=== PATIENT | male | born 1955 | race Caucasian/White ===

== ENCOUNTER → 2020-04-09 09:16 | Outpatient (BNVA) | payer MEDICARE, SELFPAY | PROVIDERS: PCP Family Medicine; Referring Provider Family Medicine; Visit Provider Internal Medicine | DX: R07.2 Precordial pain (principal); E11.9 Type 2 diabetes mellitus without complications; I10 Essential (primary) hypertension; E78.5 Hyperlipidemia, unspecified; G47.33 Obstructive sleep apnea (adult) (pediatric); E66.01 Morbid (severe) obesity due to excess calories; Z68.37 Body mass index [BMI] 37.0-37.9, adult; Z91.19 Patient's noncompliance with other medical treatment and regimen | CPT/HCPCS: 36415; 80048; 85025; 99205 ==

== ENCOUNTER 2020-04-09 19:18 | Outpatient (REF) | payer MEDICARE, SELFPAY ==
[2020-04-09 11:06] LABS: MANUAL DIFF FLAG NO
[2020-04-09 11:14] LABS: Basophils Percent Auto 0.4 % (0-2); Eosinophils Absolute Auto 0.3 X10*3/uL (0.0-0.4); Hematocrit 44.6 % (42-52); Hemoglobin 14.2 g/dl (14.0-18.0); Imm Gran Abs Auto 0.03 X10*3/uL (0.00-0.03); Imm Gran Pct Auto 0.4 % (0.0-0.4); Lymphocytes Absolute Auto 1.3 X10*3/uL (1.2-4.9); Lymphocytes Percent Auto 18.7 % (20-40); Mean Corpuscular HGB Conc 31.8 g/dl (31.0-36.0); Mean Corpuscular Hemoglobin 28.7 pg (27.0-33.0); Mean Corpuscular Volume 90.1 fL (80-98); Mean Platelet Volume 9.5 fL (9.4-12.4); Monocytes Absolute Auto 0.6 X10*3/uL (0.1-1.2); Monocytes Percent Auto 8.6 % (2-11); Neutrophils Absolute Auto 4.6 X10*3/uL (2.0-8.3); Neutrophils Percent Auto 66.9 % (45-73); Platelet Count 308 X10*3/uL (160-400); Red Blood Count 4.95 X10*6/uL (4.60-5.80); Red Cell Distribution Width 13.3 % (11.0-16.0); White Blood Count 6.9 X10*3/uL (4.8-10.8)
[2020-04-09 11:44] LABS: Anion Gap 15 (12-20); Blood Urea Nitrogen 31 mg/dL (9-16); Calcium 9.1 mg/dL (8.4-10.2); Carbon Dioxide 26 mmol/L (22-29); Chloride 101 mmol/L (96-108); Creatinine Clr Calc Pharmacy 58.3; Estimated Glomerular Filt Rate 45; Glucose Random 340 mg/dL (60-115); Potassium 5.1 mmol/l (3.3-5.1); Sodium 137 mmol/L (135-145)
== END 2020-04-09 19:19 | disposition home or self-care (01) ==
LOC: HO.LNP 19:18
PROVIDERS: Visit Provider Internal Medicine
DX: R07.9 Chest pain, unspecified (principal)
CPT/HCPCS: 36415; 80048; 85025

== ENCOUNTER 2020-04-13 17:00 | Outpatient (REF) | payer MEDICARE, SELFPAY ==
--- NOTE | 2020-04-13 17:30 | CT_ITS ---
EXAMINATION: CT ABDOMEN AND PELVIS WITHOUT CONTRAST CLINICAL INFORMATION: EPIGASTRIC PAIN S/P COLONOSCOPY 01/26; R/O PERFORATION . COMPARISON: No pertinent prior studies are available for comparison. TECHNIQUE: Multidetector volumetric imaging was performed from the superior aspect of the liver through the pubic symphysis without contrast per request. Sagittal and coronal reformatted images were obtained on the technologist workstation. This CT examination was performed using dose optimization techniques as appropriate, variously including the following: *Automated exposure control *Adjustment of mA and/or kV according to patient size (this includes techniques or standardized protocols for targeted exams where dose is matched to indication/reason for exam; i.e. extremities or head) *Use of iterative reconstruction technique DLP: 1389 mGy-cm. FINDINGS: LUNG BASES: The visualized lung bases are unremarkable. LIVER, GALLBLADDER, BILIARY TREE: The non-contrast liver is normal in size, shape, and attenuation. No focal hepatic lesion or biliary ductal dilatation is present. The gallbladder is unremarkable with no evidence of radiopaque gallstones, gallbladder wall thickening, or obvious pericholecystic inflammatory changes. PANCREAS: Unremarkable. SPLEEN: Unremarkable. ADRENAL GLANDS: Unremarkable. KIDNEYS AND URETERS: 3 cm cyst in the medial upper pole of the right kidney. Otherwise the kidneys are normal in size, shape, and attenuation. No hydronephrosis, hydroureter, or calculi seen. No perinephric stranding. BLADDER: Decompressed and unremarkable although partially obscured by beam hardening artifact from the bilateral hip prostheses. GASTROINTESTINAL TRACT: There is scattered colonic diverticulosis but no obvious diverticulitis. The oral contrast that was given extends to the splenic flexure. I do not appreciate any colonic wall thickening or pericolonic inflammatory changes. Normal-appearing retrocecal appendix in the right lower quadrant. Visualized small bowel is unremarkable. No significant free air or free fluid. ABDOMINAL WALL: No significant hernia is appreciated. Suggestion of prior hernia mesh at the local region LYMPHOVASCULAR STRUCTURES: Extensive vascular calcification within the aorta iliac system. PELVIC VISCERA: Unremarkable. OSSEUS STRUCTURES: Bilateral hip prostheses. Degenerative changes in the spine IMPRESSION: Scattered colonic diverticulosis but no evidence for diverticulitis. No colonic wall thickening or pericolonic inflammatory changes. No abnormal free air or free fluid..
== END 2020-04-13 17:01 | disposition home or self-care (01) ==
LOC: HO.CT 17:00
PROVIDERS: PCP Family Medicine; Visit Provider Family Medicine
DX: R10.13 Epigastric pain (principal)
CPT/HCPCS: 74176

== ENCOUNTER 2020-04-15 08:40 | Outpatient (REF) | payer MEDICARE, SELFPAY ==
[2020-04-15 09:50] LABS: MANUAL DIFF FLAG NO
[2020-04-15 10:02] LABS: Basophils Percent Auto 0.5 % (0-2); Eosinophils Absolute Auto 0.3 X10*3/uL (0.0-0.4); Eosinophils Percent Auto 3.7 % (0-4); Hematocrit 45.4 % (42-52); Hemoglobin 14.4 g/dl (14.0-18.0); Imm Gran Abs Auto 0.05 X10*3/uL (0.00-0.03); Imm Gran Pct Auto 0.7 % (0.0-0.4); Lymphocytes Absolute Auto 1.6 X10*3/uL (1.2-4.9); Mean Corpuscular HGB Conc 31.7 g/dl (31.0-36.0); Mean Corpuscular Hemoglobin 28.2 pg (27.0-33.0); Mean Platelet Volume 9.8 fL (9.4-12.4); Monocytes Absolute Auto 0.7 X10*3/uL (0.1-1.2); Monocytes Percent Auto 9.1 % (2-11); Neutrophils Absolute Auto 4.9 X10*3/uL (2.0-8.3); Platelet Count 307 X10*3/uL (160-400); Red Cell Distribution Width 13.2 % (11.0-16.0); White Blood Count 7.5 X10*3/uL (4.8-10.8)
[2020-04-15 10:30] LABS: C Reactive Protein 0.39 mg/dL (< or = 0.50)
[2020-04-15 10:31] LABS: Anion Gap 11 (12-20); Blood Urea Nitrogen 25 mg/dL (9-16); Carbon Dioxide 27 mmol/L (22-29); Chloride 105 mmol/L (96-108); Estimated Glomerular Filt Rate 58; Glucose Random 160 mg/dL (60-115); Potassium 4.9 mmol/l (3.3-5.1); Sodium 138 mmol/L (135-145)
== END 2020-04-15 08:41 | disposition home or self-care (01) ==
LOC: HO.LAB 08:40
PROVIDERS: Absent Provider Family Medicine; PCP Family Medicine; Visit Provider Nurse Practitioner Family
DX: E11.8 Type 2 diabetes mellitus with unspecified complications (principal); I10 Essential (primary) hypertension
CPT/HCPCS: 36415; 80048; 85025; 86140

== ENCOUNTER → 2020-04-16 12:56 | Outpatient (REF) | payer MEDICARE, SELFPAY ==
--- NOTE | 2020-04-16 13:15 | CA_ITS ---
Transthoracic Echocardiogram Patient (Last, First, Middle): River Bass A Gender: Male Date of : 1955 Age: 64 Procedure Date: 04/16/2020 Procedure Type: Transthoracic Echocardiogram Location: OP Height: 175.26 cm Weight: 113.4 kg BSA: 2.27 m2 Heart Rate: bpm BP: 132 / 78 mmHg Architectural Drafting Instructor: COLLIN Referring MD: Oliver Waite MD Symptoms: R07.2 Precordial Pain Study Quality: Fair ECG Rhythm: Sinus Conclusions: - The left ventricular systolic function is normal. The visually estimated ejection fraction is between 65-70%. - No obvious valvular pathology seen on this study. Findings Procedure Information Contrast agent, definity, is being given per protocol without apparent complications. Left Ventricle Normal left ventricular cavity size. There is mildly increased left ventricular wall thickness. The left ventricular systolic function is normal. The visually estimated ejection fraction is between 65-70%. There is no evidence of regional wall motion abnormalities. Diastolic function is normal for age. E/E prime ratio is <8, consistent with normal filling pressures. Right Ventricle Normal right ventricular cavity size and systolic function. Atria The left atrium is normal in size. The right atrium is normal in size. Aortic Valve There is a normal trileaflet aortic valve. There is mild calcification of the aortic valve. There is no aortic valve stenosis. There is no aortic valve regurgitation. Mitral Valve The mitral valve appears normal. There is trace mitral valve regurgitation. There is no mitral valve stenosis. Pulmonic Valve The pulmonic valve was not well visualized. Tricuspid Valve Normal tricuspid valve structure. There is trace tricuspid valve regurgitation. The pulmonary artery systolic pressure is normal. Great Vessels The aortic annulus, sinuses of valsalva, and asc aorta are normal in size. Venous The inferior vena cava is normal in size and collapses greater than 50% with inspiration. Pericardium/Pleural There is no evidence of pericardial effusion. Prior Study Comparison No significant change compared to prior study dated: 06/12/2017. Recommendations, Care & Conclusions No obvious valvular pathology seen on this study. Measurements 2D Linear Measurements IVSd: 1.28 0.6-0.9/0.6-1.0 cm LVIDd: 4.79 3.9-5.3/4.2-5.9 cm LVIDd Index: 2.11 2.4-3.2/2.2-3.1 cm/m2 LVIDs: 2.77 2.0-3.6 cm LVPWd: 1.07 0.7-1.1 cm Ao Root: 3.30 2.1-3.5 cm LA Diam: 3.20 2.7-3.8/3.0-4.0 cm LAIDs Index: 1.41 1.5-2.3 cm/m2 LV Mass: 264.26 67-162/88-224 g LV Mass Index: 116.41 43-95/49-115 g/m2 LVOT Diam: 2.40 3.0+(-)1.3 cm 2D Systolic Function EF 4C: 67.00 >55% EF 2C: 68.70 >55% EF BiP: 68.30 >55% Mitral Valve MV Pk E: 0.63 MV PK A: 0.52 MV Decel Time: 290.00 E/A: 1.20 E'Lateral: 9.48 E'Medial: 6.29 E/E' Med: 10.00 E/E' Lat: 6.70 PHT: 85.00 MVA PHT: 2.59 Decel Hartley: 2.17 Aortic Valve AoV Pk Rinku: 1.57 AoV Pk Grad: 10.00 LVOT LVOT Pk Rinku: 1.25 LVOT Mn Rinku: 0.75 LVOT VTI: 0.25 LVOT Pk Grad: 6.00 LVOT Mn Grad: 3.00 LVOT Diam: 2.40 LVOT Area: 4.52 Diastolic Function MV Pk E: 0.63 MV Pk A: 0.52 E/A: 1.20 E'Medial: 6.29 E/E' Med: 10.00 E' Laterial: 9.48 E/E' Lat: 6.70 Tricuspid Valve TR Pk Rinku: 2.48 TR Pk Grad: 25.00 RA Press: 3.00 RVSP: 28.00 Great Vessels Aorta Ao Root-2D: 3.30 2.0-3.7 cm Ao Asc: 3.50 2.1-3.4 cm Updated in Other Vendor System with Status of Final Oliver Waite MD electronically signed on 04/19/2020 9:31:05 AM with status of Final
== END ==
LOC: HO.CARD 12:56
PROVIDERS: PCP Family Medicine; Visit Provider Internal Medicine
DX: R07.2 Precordial pain (principal)
CPT/HCPCS: 93306; Q9957

== ENCOUNTER → 2020-05-05 10:43 | Outpatient (BNVA) | payer MEDICARE, SELFPAY | PROVIDERS: PCP Family Medicine; Visit Provider Nurse Practitioner Family | DX: I25.10 Atherosclerotic heart disease of native coronary artery without angina pectoris (principal); R07.2 Precordial pain; R78.5 Finding of other psychotropic drug in blood; G47.33 Obstructive sleep apnea (adult) (pediatric); E66.01 Morbid (severe) obesity due to excess calories; Z71.3 Dietary counseling and surveillance; E78.5 Hyperlipidemia, unspecified; E11.8 Type 2 diabetes mellitus with unspecified complications; Z98.890 Other specified postprocedural states; Z99.89 Dependence on other enabling machines and devices; Z68.37 Body mass index [BMI] 37.0-37.9, adult; Z79.82 Long term (current) use of aspirin; Z79.899 Other long term (current) drug therapy | CPT/HCPCS: 99212 ==

== ENCOUNTER → 2020-07-30 12:24 | Outpatient (BNVA) | payer MEDICARE, SELFPAY | PROVIDERS: PCP Family Medicine; Visit Provider Internal Medicine | DX: I25.10 Atherosclerotic heart disease of native coronary artery without angina pectoris (principal); E11.8 Type 2 diabetes mellitus with unspecified complications; I10 Essential (primary) hypertension; G47.33 Obstructive sleep apnea (adult) (pediatric); D75.82 Heparin induced thrombocytopenia (HIT); Z95.1 Presence of aortocoronary bypass graft | CPT/HCPCS: 99212 ==

== ENCOUNTER 2020-08-07 15:06 | Outpatient (REF) | payer MEDICARE, SELFPAY ==
[2020-08-07 15:09] LABS: MANUAL DIFF FLAG NO
[2020-08-07 15:15] LABS: Basophils Percent Auto 0.4 % (0-2); Eosinophils Absolute Auto 0.5 X10*3/uL (0.0-0.4); Hematocrit 38.1 % (42-52); Hemoglobin 11.2 g/dl (14.0-18.0); Imm Gran Abs Auto 0.01 X10*3/uL (0.00-0.03); Imm Gran Pct Auto 0.1 % (0.0-0.4); Lymphocytes Absolute Auto 1.3 X10*3/uL (1.2-4.9); Lymphocytes Percent Auto 19.2 % (20-40); Mean Corpuscular HGB Conc 29.4 g/dl (31.0-36.0); Mean Corpuscular Hemoglobin 26.2 pg (27.0-33.0); Mean Corpuscular Volume 89.2 fL (80-98); Mean Platelet Volume 10.5 fL (9.4-12.4); Monocytes Absolute Auto 0.6 X10*3/uL (0.1-1.2); Monocytes Percent Auto 9.2 % (2-11); Neutrophils Absolute Auto 4.4 X10*3/uL (2.0-8.3); Neutrophils Percent Auto 64.1 % (45-73); Platelet Count 340 X10*3/uL (160-400); Red Blood Count 4.27 X10*6/uL (4.60-5.80); Red Cell Distribution Width 15.3 % (11.0-16.0); White Blood Count 6.9 X10*3/uL (4.8-10.8)
[2020-08-07 15:51] LABS: Anion Gap 13 (12-20); Blood Urea Nitrogen 19 mg/dL (9-16); Carbon Dioxide 30 mmol/L (22-29); Chloride 101 mmol/L (96-108); Estimated Glomerular Filt Rate 50; Sodium 139 mmol/L (135-145)
== END 2020-08-07 15:07 | disposition home or self-care (01) ==
LOC: HO.LNP 15:06
PROVIDERS: Visit Provider Family Medicine
DX: D64.9 Anemia, unspecified (principal); E11.9 Type 2 diabetes mellitus without complications; I10 Essential (primary) hypertension; Z79.899 Other long term (current) drug therapy
CPT/HCPCS: 80051; 82565; 84520; 85025

== ENCOUNTER 2020-09-02 14:33 | Outpatient (REF) | payer MEDICARE, SELFPAY ==
[2020-09-02 15:44] LABS: MANUAL DIFF FLAG NO
[2020-09-02 15:51] LABS: Basophils Percent Auto 0.4 % (0-2); Eosinophils Absolute Auto 0.4 X10*3/uL (0.0-0.4); Eosinophils Percent Auto 4.8 % (0-4); Hematocrit 40.5 % (42-52); Imm Gran Abs Auto 0.02 X10*3/uL (0.00-0.03); Imm Gran Pct Auto 0.3 % (0.0-0.4); Lymphocytes Absolute Auto 1.5 X10*3/uL (1.2-4.9); Lymphocytes Percent Auto 19.1 % (20-40); Mean Corpuscular HGB Conc 29.6 g/dl (31.0-36.0); Mean Corpuscular Hemoglobin 25.8 pg (27.0-33.0); Mean Corpuscular Volume 86.9 fL (80-98); Mean Platelet Volume 9.9 fL (9.4-12.4); Monocytes Absolute Auto 0.7 X10*3/uL (0.1-1.2); Monocytes Percent Auto 8.8 % (2-11); Neutrophils Absolute Auto 5.3 X10*3/uL (2.0-8.3); Neutrophils Percent Auto 66.6 % (45-73); Platelet Count 339 X10*3/uL (160-400); Red Blood Count 4.66 X10*6/uL (4.60-5.80); Red Cell Distribution Width 14.8 % (11.0-16.0)
[2020-09-02 16:35] LABS: Free T4 (Free Thyroxine) 0.89 ng/dL (0.71-1.85); Thyroid Stimulating Hormone 2.75 uIU/mL (0.32-4.0)
== END 2020-09-02 14:34 | disposition home or self-care (01) ==
LOC: HO.LAB 14:33
PROVIDERS: Visit Provider Family Medicine
DX: I95.9 Hypotension, unspecified (principal)
CPT/HCPCS: 36415; 84439; 84443; 85025

== ENCOUNTER 2020-09-04 10:49 | Outpatient (REF) | payer MEDICARE, SELFPAY ==
[2020-09-04 11:58] LABS: INTERNATIONAL NORM RATIO 1.8 (0.9-1.1); Prothrombin Time 21.1 SEC (10.8-13.0)
== END 2020-09-04 10:50 | disposition home or self-care (01) ==
LOC: HO.LAB 10:49
PROVIDERS: PCP Family Medicine; Visit Provider Nurse Practitioner Family
DX: I26.99 Other pulmonary embolism without acute cor pulmonale (principal)
CPT/HCPCS: 36415; 85610

== ENCOUNTER 2020-09-28 10:16 | Outpatient (REF) | payer MEDICARE, SELFPAY ==
[2020-09-28 11:22] LABS: INTERNATIONAL NORM RATIO 1.6 (0.9-1.1); Prothrombin Time 18.8 SEC (10.8-13.0)
== END 2020-09-28 10:17 | disposition home or self-care (01) ==
LOC: HO.LABR 10:16
PROVIDERS: PCP Family Medicine; Visit Provider Family Medicine
DX: I26.99 Other pulmonary embolism without acute cor pulmonale (principal)
CPT/HCPCS: 36415; 85610

== ENCOUNTER → 2020-10-05 13:44 | Outpatient (REF) | payer MEDICARE, SELFPAY ==
--- NOTE | 2020-10-05 13:48 | CA_ITS ---
Transthoracic Echocardiogram Patient (Last, First, Middle): River Bass A Gender: Male Date of : 1955 Age: 65 Procedure Date: 10/05/2020 Procedure Type: Transthoracic Echocardiogram Location: OP Height: 175.26 cm Weight: 108.86 kg BSA: 2.23 m2 Heart Rate: bpm BP: 130 / 70 mmHg Staff Air Tactical Officer: DAYRON Referring MD: Oliver Waite MD Symptoms: I25.10 - Atherosclerotic heart disease of [place] coronary artery without angina pectoris Study Quality: Fair/contrast ECG Rhythm: Sinus Conclusions: - The left ventricular systolic function is normal. The visually estimated ejection fraction is between 60-65%. - There is mild calcification of the aortic valve. - There is mild mitral annular calcification. Findings Procedure Information Contrast agent, definity, is being given per protocol without apparent complications. Left Ventricle Normal left ventricular cavity size. There is mildly increased left ventricular wall thickness. The left ventricular systolic function is normal. The visually estimated ejection fraction is between 60-65%. There is no evidence of regional wall motion abnormalities. There is paradoxical septal motion consistent with post-operative status. Diastolic function is normal for age. Right Ventricle Normal right ventricular cavity size and systolic function. Atria The left atrium is mildly dilated. The right atrium is normal in size. Aortic Valve There is mild calcification of the aortic valve. There is no aortic valve stenosis. There is no aortic valve regurgitation. Mitral Valve The mitral valve appears normal. There is mild mitral annular calcification. There is trace mitral valve regurgitation. There is no mitral valve stenosis. Pulmonic Valve The pulmonic valve was not well visualized. Tricuspid Valve Normal tricuspid valve structure. There is trace tricuspid valve regurgitation. The pulmonary artery systolic pressure is normal. Great Vessels There is mild dilatation of the ascending aorta measuring 4.00 cm. Venous The inferior vena cava is normal in size. Pericardium/Pleural There is no evidence of pericardial effusion. Prior Study Comparison No significant change compared to prior study dated: 04/16/2020. Measurements 2D Linear Measurements IVSd: 1.24 0.6-0.9/0.6-1.0 cm LVIDd: 4.65 3.9-5.3/4.2-5.9 cm LVIDd Index: 2.09 2.4-3.2/2.2-3.1 cm/m2 LVIDs: 3.00 2.0-3.6 cm LVPWd: 1.22 0.7-1.1 cm Ao Root: 3.80 2.1-3.5 cm LA Diam: 4.20 2.7-3.8/3.0-4.0 cm LAIDs Index: 1.88 1.5-2.3 cm/m2 LV Mass: 269.24 67-162/88-224 g LV Mass Index: 120.73 43-95/49-115 g/m2 LVOT Diam: 2.20 3.0+(-)1.3 cm 2D Systolic Function EF 4C: 62.70 >55% EF 2C: 61.70 >55% EF BiP: 63.90 >55% Mitral Valve MV Pk E: 0.59 MV PK A: 0.49 MV Decel Time: 392.00 E/A: 1.20 E'Lateral: 7.94 E'Medial: 5.87 E/E' Med: 10.00 E/E' Lat: 7.40 PHT: 115.00 MVA PHT: 1.91 Decel [place]: 1.50 Aortic Valve AoV Pk Rinku: 1.52 AoV Mn Rinku: 1.07 AoV VTI: 0.30 AoV Pk Grad: 9.00 Aov Mn Grad: 5.00 SAL Cont.VTI: 2.37 LVOT LVOT Pk Rinku: 0.97 LVOT Mn Rinku: 0.59 LVOT VTI: 0.19 LVOT Pk Grad: 4.00 LVOT Mn Grad: 2.00 LVOT Diam: 2.20 LVOT Area: 3.80 Diastolic Function MV Pk E: 0.59 MV Pk A: 0.49 E/A: 1.20 E'Medial: 5.87 E/E' Med: 10.00 E' Laterial: 7.94 E/E' Lat: 7.40 Tricuspid Valve TR Pk Rinku: 1.90 TR Pk Grad: 14.00 RA Press: 3.00 RVSP: 17.00 Great Vessels Aorta Ao Root-2D: 3.80 2.0-3.7 cm Ao Asc: 4.00 2.1-3.4 cm Ao Arch: 3.60 Updated in Other Vendor System with Status of Final Oliver Waite MD electronically signed on 10/05/2020 4:57:09 PM with status of Final
== END ==
LOC: HO.CARD 13:44
PROVIDERS: Visit Provider Internal Medicine
DX: I25.10 Atherosclerotic heart disease of native coronary artery without angina pectoris (principal); Z95.1 Presence of aortocoronary bypass graft
CPT/HCPCS: 93306; Q9957

== ENCOUNTER 2020-10-30 09:04 | Outpatient (REF) | payer MEDICARE, SELFPAY ==
[2020-10-30 10:45] LABS: INTERNATIONAL NORM RATIO 1.7 (0.9-1.1); Prothrombin Time 19.8 SEC (10.8-13.0)
== END 2020-10-30 09:05 | disposition home or self-care (01) ==
LOC: HO.LABR 09:04
PROVIDERS: PCP Family Medicine; Visit Provider Family Medicine
DX: I26.99 Other pulmonary embolism without acute cor pulmonale (principal)
CPT/HCPCS: 36415; 85610

== ENCOUNTER 2020-11-17 14:09 | Outpatient (REF) | payer MEDICARE, SELFPAY ==
[2020-11-17 15:17] LABS: INTERNATIONAL NORM RATIO 1.2 (0.9-1.1); Prothrombin Time 14.4 SEC (10.8-13.0)
== END 2020-11-17 14:10 | disposition home or self-care (01) ==
LOC: HO.LABR 14:09
PROVIDERS: PCP Family Medicine; Visit Provider Family Medicine
DX: I26.99 Other pulmonary embolism without acute cor pulmonale (principal)
CPT/HCPCS: 36415; 85610

== ENCOUNTER 2020-11-24 14:28 | Outpatient (REF) | payer MEDICARE, SELFPAY ==
[2020-11-24 15:28] LABS: INTERNATIONAL NORM RATIO 1.4 (0.9-1.1); Prothrombin Time 16.3 SEC (10.8-13.0)
== END 2020-11-24 14:29 | disposition home or self-care (01) ==
LOC: HO.LABR 14:28
PROVIDERS: PCP Family Medicine; Visit Provider Family Medicine
DX: I26.99 Other pulmonary embolism without acute cor pulmonale (principal)
CPT/HCPCS: 36415; 85610

== ENCOUNTER 2020-12-02 13:46 | Outpatient (REF) | payer MEDICARE, SELFPAY ==
[2020-12-02 14:51] LABS: INTERNATIONAL NORM RATIO 1.7 (0.9-1.1); Prothrombin Time 20.2 SEC (10.8-13.0)
== END 2020-12-02 13:47 | disposition home or self-care (01) ==
LOC: HO.LABR 13:46
PROVIDERS: Absent Provider Nurse Practitioner Family; PCP Family Medicine; Visit Provider Family Medicine
DX: I26.99 Other pulmonary embolism without acute cor pulmonale (principal)
CPT/HCPCS: 36415; 85610

== ENCOUNTER 2021-01-06 12:19 | Outpatient (REF) | payer MEDICARE, SELFPAY ==
[2021-01-06 14:02] LABS: Prothrombin Time 24.2 SEC (10.8-13.0)
== END 2021-01-06 12:20 | disposition home or self-care (01) ==
LOC: HO.LABR 12:19
PROVIDERS: Visit Provider Family Medicine
DX: I26.99 Other pulmonary embolism without acute cor pulmonale (principal); I25.10 Atherosclerotic heart disease of native coronary artery without angina pectoris
CPT/HCPCS: 36415; 85610

== ENCOUNTER 2021-01-18 11:04 | Outpatient (REF) | payer MEDICARE, SELFPAY ==
[2021-01-18 12:10] LABS: INTERNATIONAL NORM RATIO 2.1 (0.9-1.1); Prothrombin Time 24.4 SEC (9.9-13.0)
== END 2021-01-18 11:05 | disposition home or self-care (01) ==
LOC: HO.LABR 11:04
PROVIDERS: PCP Family Medicine; Visit Provider Family Medicine
DX: I26.99 Other pulmonary embolism without acute cor pulmonale (principal)
CPT/HCPCS: 36415; 85610

== ENCOUNTER → 2021-01-20 13:04 | Outpatient (BNVA) | payer MEDICARE, SELFPAY | PROVIDERS: PCP Family Medicine; Visit Provider Internal Medicine | DX: I25.10 Atherosclerotic heart disease of native coronary artery without angina pectoris (principal); E11.8 Type 2 diabetes mellitus with unspecified complications; I10 Essential (primary) hypertension; G47.33 Obstructive sleep apnea (adult) (pediatric); D75.82 Heparin induced thrombocytopenia (HIT); Z95.1 Presence of aortocoronary bypass graft | CPT/HCPCS: 99212 ==

== ENCOUNTER 2021-02-01 09:53 | Outpatient (REF) | payer MEDICARE, SELFPAY ==
[2021-02-01 10:46] LABS: INTERNATIONAL NORM RATIO 1.8 (0.9-1.1); Prothrombin Time 20.9 SEC (9.9-13.0)
== END 2021-02-01 09:54 | disposition home or self-care (01) ==
LOC: HO.LABR 09:53
PROVIDERS: PCP Family Medicine; Visit Provider Family Medicine
DX: I26.99 Other pulmonary embolism without acute cor pulmonale (principal)
CPT/HCPCS: 36415; 85610

== ENCOUNTER 2021-02-16 13:06 | Outpatient (REF) | payer MEDICARE, SELFPAY ==
[2021-02-16 13:49] LABS: INTERNATIONAL NORM RATIO 1.6 (0.9-1.1); Prothrombin Time 18.8 SEC (9.9-13.0)
== END 2021-02-16 13:07 | disposition home or self-care (01) ==
LOC: HO.LABR 13:06
PROVIDERS: PCP Family Medicine; Visit Provider Family Medicine
DX: I26.99 Other pulmonary embolism without acute cor pulmonale (principal)
CPT/HCPCS: 36415; 85610

== ENCOUNTER 2021-02-23 12:17 | Outpatient (REF) | payer MEDICARE, SELFPAY ==
[2021-02-23 14:42] LABS: INTERNATIONAL NORM RATIO 1.8 (0.9-1.1); Prothrombin Time 20.7 SEC (9.9-13.0)
== END 2021-02-23 12:18 | disposition home or self-care (01) ==
LOC: HO.10HDL 12:17
PROVIDERS: PCP Family Medicine; Visit Provider Family Medicine
DX: I26.99 Other pulmonary embolism without acute cor pulmonale (principal)
CPT/HCPCS: 36415; 85610

== ENCOUNTER 2021-03-08 13:53 | Outpatient (REF) | payer MEDICARE, SELFPAY ==
[2021-03-08 15:03] LABS: INTERNATIONAL NORM RATIO 2.3 (0.9-1.1); Prothrombin Time 26.2 SEC (9.9-13.0)
== END 2021-03-08 13:54 | disposition home or self-care (01) ==
LOC: HO.LABR 13:53
PROVIDERS: PCP Family Medicine; Visit Provider Family Medicine
DX: I26.99 Other pulmonary embolism without acute cor pulmonale (principal)
CPT/HCPCS: 36415; 85610

== ENCOUNTER 2021-03-23 08:54 | Outpatient (REF) | payer MEDICARE, SELFPAY ==
[2021-03-23 10:01] LABS: INTERNATIONAL NORM RATIO 1.6 (0.9-1.1); Prothrombin Time 17.8 SEC (9.9-13.0)
== END 2021-03-23 08:55 | disposition home or self-care (01) ==
LOC: HO.LABR 08:54
PROVIDERS: PCP Family Medicine; Visit Provider Family Medicine
DX: I26.99 Other pulmonary embolism without acute cor pulmonale (principal)
CPT/HCPCS: 36415; 85610

== ENCOUNTER 2021-04-06 09:34 | Outpatient (REF) | payer MEDICARE, SELFPAY ==
[2021-04-06 10:24] LABS: INTERNATIONAL NORM RATIO 2.2 (0.9-1.1)
== END 2021-04-06 09:35 | disposition home or self-care (01) ==
LOC: HO.LABR 09:34
PROVIDERS: Visit Provider Family Medicine
DX: I26.99 Other pulmonary embolism without acute cor pulmonale (principal)
CPT/HCPCS: 36415; 85610

== ENCOUNTER 2021-04-20 09:01 | Outpatient (REF) | payer MEDICARE, SELFPAY ==
[2021-04-20 10:09] LABS: Prothrombin Time 22.7 SEC (9.9-13.0)
[2021-04-20 10:19] LABS: Estimated Average Glucose 252 mg/dL; Hemoglobin A1c % 10.4 %
[2021-04-20 10:31] LABS: Anion Gap 12 (12-20); Blood Urea Nitrogen 22 mg/dL (9-16); Carbon Dioxide 29 mmol/L (22-29); Chloride 100 mmol/L (96-108); Estimated Glomerular Filt Rate 40; Glucose Fasting 263 mg/dL (60-99); Potassium 5.3 mmol/L (3.3-5.1); Sodium 136 mmol/L (135-145)
== END 2021-04-20 09:02 | disposition home or self-care (01) ==
LOC: HO.LAB 09:01
PROVIDERS: PCP Family Medicine; Visit Provider Family Medicine
DX: E11.9 Type 2 diabetes mellitus without complications (principal); I10 Essential (primary) hypertension; I26.99 Other pulmonary embolism without acute cor pulmonale
CPT/HCPCS: 36415; 80051; 82565; 82947; 83036; 84520; 85610

== ENCOUNTER 2021-04-23 12:26 | Outpatient (REF) | payer MEDICARE, SELFPAY ==
--- NOTE | ~2021-04-23 | XR_ITS ---
EXAMINATION: XR LUMBOSACRAL SPINE CLINICAL INFORMATION: Low back pain. COMPARISON: None TECHNIQUE: Three views of the lumbosacral spine. FINDINGS: There is mild straightening of lumbar lordosis. The vertebral heights and alignment is normal. There is loss of L5-S1 disc heights. There is moderate spondylosis dorsal spine. No lytic or sclerotic process seen. SI joints are symmetrical. Paravertebral soft tissues are normal. Incidental finding of bilateral hip prosthesis. XR/XR lumbar spine 2-3V IMPRESSION: Mild degenerative disc changes lumbar spine. Moderate bridging osteophytes and spondylosis throughout lumbar spine. No acute fracture or lytic process.
== END 2021-04-23 12:27 | disposition home or self-care (01) ==
LOC: HO.XRAY 12:26
PROVIDERS: Visit Provider Family Medicine
DX: M54.50 Low back pain, unspecified (principal)
CPT/HCPCS: 72100

== ENCOUNTER 2021-05-11 14:27 | Outpatient (REF) | payer MEDICARE, SELFPAY ==
[2021-05-11 15:02] LABS: INTERNATIONAL NORM RATIO 2.5 (0.9-1.1); Prothrombin Time 29.5 SEC (9.9-13.0)
== END 2021-05-11 14:28 | disposition home or self-care (01) ==
LOC: HO.LABR 14:27
PROVIDERS: PCP Family Medicine; Visit Provider Family Medicine
DX: I26.99 Other pulmonary embolism without acute cor pulmonale (principal)
CPT/HCPCS: 36415; 85610

== ENCOUNTER 2021-06-07 15:01 | Outpatient (REF) | payer MEDICARE, SELFPAY ==
[2021-06-07 15:49] LABS: INTERNATIONAL NORM RATIO 1.9 (0.9-1.1); Prothrombin Time 21.9 SEC (9.9-13.0)
== END 2021-06-07 15:02 | disposition home or self-care (01) ==
LOC: HO.LABR 15:01
PROVIDERS: PCP Family Medicine; Visit Provider Family Medicine
DX: I26.99 Other pulmonary embolism without acute cor pulmonale (principal)
CPT/HCPCS: 36415; 85610

== ENCOUNTER 2021-11-24 09:38 | Outpatient (REF) | payer MEDICARE, SELFPAY ==
[2021-11-24 11:49] LABS: Estimated Average Glucose 252 mg/dL; Hemoglobin A1c % 10.4 %
[2021-11-24 11:56] LABS: Glucose Fasting 264 mg/dL (60-99)
[2021-11-24 12:01] LABS: Alanine Aminotransferase 20 U/L (0-40); Anion Gap 11 (12-20); Aspartate Amino Transferase 17 U/L (5-37); Carbon Dioxide 33 mmol/L (22-29); Chloride 100 mmol/L (96-108); Cholesterol 135 mg/dL; Estimated Glomerular Filt Rate 44; HDL Cholesterol 34 mg/dL; LDL Cholesterol Calculated 81 mg/dl; Potassium 5.5 mmol/L (3.3-5.1); Sodium 138 mmol/L (135-145); Triglycerides 101 mg/dL
== END 2021-11-24 09:39 | disposition home or self-care (01) ==
LOC: HO.HMGCLDS 09:38
PROVIDERS: PCP Family Medicine; Visit Provider Family Medicine
DX: I10 Essential (primary) hypertension (principal); E11.9 Type 2 diabetes mellitus without complications; E78.00 Pure hypercholesterolemia, unspecified
CPT/HCPCS: 36415; 80051; 80061; 82550; 82565; 82947; 83036; 84450; 84460

== ENCOUNTER 2022-08-31 12:44 | Outpatient (REF) | payer MEDICARE, SELFPAY ==
[2022-08-31 14:41] LABS: MANUAL DIFF FLAG NO
[2022-08-31 14:54] LABS: Basophils Percent Auto 0.4 % (0-2); Eosinophils Absolute Auto 0.3 X10*3/uL (0.0-0.4); Eosinophils Percent Auto 3.7 % (0-4); Hematocrit 49.4 % (42.0-52.0); Hemoglobin 15.6 g/dl (14.0-18.0); Imm Gran Abs Auto 0.03 X10*3/uL (0.00-0.03); Imm Gran Pct Auto 0.4 % (0.0-0.4); Lymphocytes Absolute Auto 1.3 X10*3/uL (1.2-4.9); Lymphocytes Percent Auto 19.1 % (20-40); Mean Corpuscular HGB Conc 31.6 g/dl (31.0-36.0); Mean Corpuscular Hemoglobin 28.7 pg (27.0-33.0); Mean Corpuscular Volume 90.8 fL (80.0-98.0); Mean Platelet Volume 10.4 fL (9.4-12.4); Monocytes Absolute Auto 0.6 X10*3/uL (0.1-1.2); Monocytes Percent Auto 8.9 % (2-11); Neutrophils Absolute Auto 4.6 x10*3/uL (2.0-8.3); Neutrophils Percent Auto 67.5 % (45-73); Platelet Count 211 X10*3/uL (160-400); Red Blood Count 5.44 X10*6/uL (4.60-5.80); Red Cell Distribution Width 12.7 % (11.0-16.0); White Blood Count 6.8 X10*3/uL (4.8-10.8)
[2022-08-31 15:31] LABS: Alanine Aminotransferase 23 U/L (0-40); Anion Gap 13 (12-20); Aspartate Amino Transferase 15 U/L (5-37); Blood Urea Nitrogen 18 mg/dL (9-16); Carbon Dioxide 30 mmol/L (22-29); Chloride 101 mmol/L (96-108); Estimated Glomerular Filt Rate 54; Glucose Fasting 298 mg/dL (60-99); Potassium 5.3 mmol/L (3.3-5.1); Sodium 139 mmol/L (135-145)
[2022-08-31 15:39] LABS: Estimated Average Glucose 335 mg/dL; Hemoglobin A1c % 13.3 %
[2022-08-31 15:46] LABS: Prostate Specific Antigen Scr 0.54 ng/mL (<0.05-4.0)
== END 2022-08-31 12:45 | disposition home or self-care (01) ==
LOC: HO.10HDL 12:44
PROVIDERS: Visit Provider Family Medicine
DX: Z12.5 Encounter for screening for malignant neoplasm of prostate (principal); R10.9 Unspecified abdominal pain; I10 Essential (primary) hypertension; E11.9 Type 2 diabetes mellitus without complications
CPT/HCPCS: 36415; 80051; 82378; 82550; 82565; 82947; 83036; 84153; 84450; 84460; 84520; 85025

== ENCOUNTER 2022-09-26 08:38 | Outpatient (REF) | payer MEDICARE, SELFPAY ==
--- NOTE | ~2022-09-26 | CT_ITS ---
EXAMINATION: CT ABDOMEN AND PELVIS WITHOUT CONTRAST CLINICAL INFORMATION: Epigastric pain, left lower quadrant pain. COMPARISON: None available. TECHNIQUE: Multidetector volumetric imaging was performed from the superior aspect of the liver through the pubic symphysis. Sagittal and coronal reformatted images were obtained on the technologist's workstation. This CT examination was performed using dose optimization techniques as appropriate, variously including the following: *Automated exposure control *Adjustment of mA and/or kV according to patient size (this includes techniques or standardized protocols for targeted exams where dose is matched to indication/reason for exam; i.e. extremities or head) *Use of iterative reconstruction technique DLP: 802 mGy-cm FINDINGS: LUNG BASES: The visualized lung bases are unremarkable. LIVER, GALLBLADDER, AND BILIARY TREE: The liver is normal in size, shape, and attenuation. No focal hepatic lesion or biliary ductal dilatation is present. The gallbladder is unremarkable with no evidence of radiopaque gallstones, gallbladder wall thickening, or obvious pericholecystic inflammatory changes. PANCREAS: Unremarkable. SPLEEN: Unremarkable. ADRENAL GLANDS: Unremarkable. KIDNEYS AND URETERS: The kidneys are normal in size, shape, and attenuation. No hydronephrosis, hydroureter, or calculi seen. No perinephric stranding. BLADDER: Unremarkable. GASTROINTESTINAL TRACT: There is scattered stool and diverticula seen in colon without any colonic distention, mural thickening or pericolic fat stranding. The diverticula are most numerous in sigmoid colon. There is minimal mural thickening involving the terminal ileum but no inflammatory changes seen in the surrounding soft tissues. The rest the small bowel is well-opacified with oral contrast and appears unremarkable. The stomach is opacified with oral contrast and is unremarkable. ABDOMINAL WALL: No significant hernia is appreciated. LYMPH NODES: Normal. VASCULAR: Unremarkable. PELVIC VISCERA: Unremarkable. OSSEOUS STRUCTURES: There are degenerative disc changes L2-L3, L5-S1 disc levels with large ventral bridging osteophytes lower dorsal and lumbar spine. No aggressive lytic or sclerotic process seen. There are bilateral hip prostheses. CT/CT abdomen pelvis wo IV con IMPRESSION: No acute intra-abdominal process seen. Diffuse colonic diverticulosis without diverticulitis. The diverticula are most prominent in the sigmoid region. Nonspecific mild mural thickening terminal ileum without distention. Fleischner guidelines were followed.
[2022-09-26] MEDS: Barium Sulfate Oral (Berry) 450 ML ORAL.SUSP 900 ML PO (10:59)
== END 2022-09-26 08:39 | disposition home or self-care (01) ==
LOC: HO.CT 08:38
PROVIDERS: PCP Family Medicine; Visit Provider Family Medicine
DX: R10.30 Lower abdominal pain, unspecified (principal); R10.13 Epigastric pain
CPT/HCPCS: 74176

== ENCOUNTER 2022-12-30 09:51 | Outpatient (REF) | payer OTHER, SELFPAY ==
[2022-12-30 12:10] LABS: Estimated Average Glucose 243 mg/dL; Hemoglobin A1c % 10.1 %
[2022-12-30 12:38] LABS: Creatinine Urine 136.13 mg/dL
[2022-12-30 12:51] LABS: Blood Urea Nitrogen 19 mg/dL (9-16); Chloride 101 mmol/L (96-108); Estimated Glomerular Filt Rate 50; Potassium 4.9 mmol/L (3.3-5.1); Sodium 136 mmol/L (135-145)
[2022-12-30 13:06] LABS: Anion Gap 15 (12-20); Carbon Dioxide 26 mmol/L (22-29)
== END 2022-12-30 09:52 | disposition home or self-care (01) ==
LOC: HO.HMGCLDS 09:51
PROVIDERS: PCP Family Medicine; Visit Provider Family Medicine
DX: I10 Essential (primary) hypertension (principal); E11.9 Type 2 diabetes mellitus without complications
CPT/HCPCS: 36415; 80051; 82043; 82565; 83036; 84520

== ENCOUNTER 2023-03-23 09:25 | Outpatient (AMB) | payer OTHER, SELFPAY ==
[2023-03-23 09:46] VITALS: BP 120/74; PULSE 56; BMI 36.6
--- NOTE | 2023-03-23 09:46 | MHC.OFFVIS ---
Intake Vital Signs 03/23/23 09:46 Height 5 ft 9 in Weight 247 lb 12.793 oz BMI 36.6 BP 120/74 Blood Pressure Location Lt brachial Position Sitting Pulse 56 Intake Visit Reasons: OVERDUE FOLLOW UP Intake Note: overdue f/u [place] Machine Operator Required: No Allergies heparin Adverse Reaction (Severe, Verified 03/23/23 09:50) HIT Medication List - Last Reconciled 03/23/23 by ERNESTINA Aquino aspirin 81 mg PO DAILY atorvastatin 20 mg PO DAILY gabapentin 300 mg PO BEDTIME insulin glargine 10 units subcut BID insulin lispro (Humalog KwikPen (U-100) Insulin) 5 units subcut TID insulin lispro 100 units subcut DIRECTED metformin 500 mg PO DAILY metoprolol succinate ER 25 mg PO DAILY pantoprazole 40 mg PO DAILY sertraline 50 mg PO QAM tamsulosin 0.4 mg PO DAILY HPI OVERDUE FOLLOW UP HPI Details River is a 67-year-old male with past medical history of hypertension, hyperlipidemia, sleep apnea, diabetes, obesity, CAD with 3 vessel coronary artery bypass grafting 04/2020, followed by DVT/PE, HIT who presents for follow-up. His last prior visit to cardiology was 01/20/2021. Today he reports that he has been doing very well over the last 2 years. He has no chest discomfort at rest or with activity. No heart palpitations, shortness of breath, presyncope, syncope, falls, PND, orthopnea or edema. He says he takes his meds as directed. 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 HLD (hyperlipidemia) CAD (coronary artery disease) History of stroke ONEYDA (obstructive sleep apnea) Morbid obesity Type 2 diabetes mellitus with unspecified complications Essential hypertension Surgical History Status post aorto-coronary artery bypass graft History of coronary artery bypass graft x 3 (~05/21/20) S/P cardiac cath (~04/2020) History of hip replacement Family History Father Cardiovascular disease Mother Cardiovascular disease Social History Alcohol intake: former Patient Tobacco Use Status: Never used Tobacco Review of Systems Const All systems reviewed & are unremarkable except as noted in HPI and below ENT Denies dizziness Card Denies chest pain, Denies chest pain at rest, Denies chest pain with activity, Denies rapid heart rate, Denies pedal edema, Denies edema, Denies leg edema, Denies lightheadedness, Denies palpitations, Denies dyspnea, Denies dyspnea on exertion and Denies orthopnea Resp Denies cough, Denies dyspnea and Denies dyspnea on exertion GI Denies hematochezia and Denies change in stool character Musc Denies abnormal gait, Denies limited range of motion, Denies muscle cramps, Denies muscle weakness, Denies numbness, Denies radiating pain into limb, Denies stiffness and Denies tingling Neuro Denies abnormal gait, Denies dizziness, Denies numbness and Denies tingling Endo Denies palpitations Physical Exam Vital Signs: Last Vital Signs Pulse 56 03/23/23 09:46 BP 120/74 03/23/23 09:46 BMI result Body Mass Index 36.6 Const General: cooperative, healthy appearing, comfortable and no acute distress Orientation/consciousness: patient oriented x3 Neck Neck: Yes normal visual inspection Resp Effort & Inspection: normal respiratory effort Auscultation: clear to auscultation bilaterally, no crackles, no rales, no rhonchi and no wheezes Cardio Jugular venous distension: no JVD Rate: regular rate Rhythm: regular rhythm Heart sounds: S1 normal heart sound present, S2 normal heart sound present, no murmurs and no rubs Neuro General: patient oriented x3 Extrem General: Yes normal to inspection and No no pedal edema Psych Appearance: grossly normal Mental Status: mental status grossly normal Speech and movement: Normal speech and movement present Office Procedures EKG Details: Today, read by me, sinus bradycardia, no acute ST or T-wave abnormalities, some artifact noted, rate 56, QTC 401 millisecond [id number], Complete Assessment & Plan Assessment & Plan (1) Atherosclerotic cardiovascular disease: Code(s): I25.10 - Atherosclerotic heart disease of [place] coronary artery without angina pectoris Plan: History of CAD with cardiac catheterization 04/2020 showing multi-vessel CAD. He underwent a 3 vessel Coronary artery bypass grafting, followed by COVID infection and DVT/PE. During his treatment he was found to have HIT. He was initially on Coumadin which he tells me has since been discontinued. Last echo 10/05/2020 showed EF 60-65%, mild aortic and mitral calcifications. His last prior visit to cardiology was 01/20/2021. Today he reports that he has been doing very well over the last 2+ years. No anginal sounding symptoms. 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 EKG done today showing sinus bradycardia, no acute ST or T-wave abnormalities, rate 56. Will continue on aspirin indefinitely. LDL goal less than 70. Labs done 12/30/2022 showed LDL 81. Will increase his atorvastatin up to 40 mg daily from 20 mg daily. Continue metoprolol XL. Ongoing cardiac risk factor modification with good blood sugar control, weight loss, increasing physical activity as tolerated. Discussed all the above with him and he states understanding. Will update echo prior to his next visit. Cardiology follow-up in 1 year, sooner if needed. (2) Status post aorto-coronary artery bypass graft: Comment: 05/21/2020 Boss to LAD, radial artery graft to OM 1, GSV to RCA Code(s): Z95.1 - Presence of aortocoronary bypass graft (3) S/P cardiac cath: Onset Date: ~04/2020 Comment: LM normal, LAD mid prox 70%, 1st diag prox 50%, LCx prox ostial 70%, RCA prox 80% - CABG referral Code(s): Z98.890 - Other specified postprocedural states (4) Essential hypertension: Code(s): I10 - Essential (primary) hypertension Plan: Well controlled at this time. Continue current metoprolol. (5) Type 2 diabetes mellitus with unspecified complications: Code(s): E11.8 - Type 2 diabetes mellitus with unspecified complications Plan: Hemoglobin A1c goal less than 7. Followed by his PCP. (6) HIT (heparin-induced thrombocytopenia): Code(s): D75.82 - Heparin induced thrombocytopenia (HIT) Orders: Orders CA echo transthoracic complete 11 Months I25.10 - Atherosclerotic heart disease of [place] coronary artery without angina pectoris, Z95.1 - Presence of aortocoronary bypass graft Medications: New atorvastatin 40 mg PO BEDTIME 90 tabs 3RF Coding Level of Care Code Est Pt Level 4 (28364) Diagnoses Atherosclerotic cardiovascular disease I25.10 Status post aorto-coronary artery bypass graft Z95.1 S/P cardiac cath Z98.890 Essential hypertension I10 Type 2 diabetes mellitus with unspecified complications E11.8 HIT (heparin-induced thrombocytopenia) D75.82 CPT Codes EKG - CPT: 49065-[id number], Complete ([id number]) Time Spent (min) 28
== END 2023-03-23 10:07 | disposition home or self-care (01) ==
PROVIDERS: PCP Family Medicine; Referring Provider Family Medicine; Visit Provider Nurse Practitioner Family
DX: I25.10 Atherosclerotic heart disease of native coronary artery without angina pectoris (principal); Z95.1 Presence of aortocoronary bypass graft; Z98.890 Other specified postprocedural states; I10 Essential (primary) hypertension; E11.8 Type 2 diabetes mellitus with unspecified complications; D75.82 Heparin induced thrombocytopenia (HIT)
CPT/HCPCS: 93010; 99214

== ENCOUNTER → 2023-03-23 09:25 | Outpatient (BNVA) | payer OTHER, SELFPAY | PROVIDERS: PCP Family Medicine; Referring Provider Family Medicine; Visit Provider Nurse Practitioner Family | DX: I25.10 Atherosclerotic heart disease of native coronary artery without angina pectoris (principal); I10 Essential (primary) hypertension; E11.8 Type 2 diabetes mellitus with unspecified complications; D75.829 Heparin-induced thrombocytopenia, unspecified; Z79.899 Other long term (current) drug therapy; Z95.1 Presence of aortocoronary bypass graft | CPT/HCPCS: 93005; 99212 ==

== ENCOUNTER 2023-10-20 08:46 | Outpatient (REF) | payer OTHER, SELFPAY ==
[2023-10-20 11:12] LABS: Estimated Average Glucose 243 mg/dL; Hemoglobin A1c % 10.1 % (<6.0)
[2023-10-20 11:18] LABS: Alanine Aminotransferase 18 U/L (0-40); Anion Gap 11 (12-20); Aspartate Amino Transferase 16 U/L (5-37); Blood Urea Nitrogen 23 mg/dL (9-16); Carbon Dioxide 28 mmol/L (22-29); Chloride 105 mmol/L (96-108); Estimated Glomerular Filt Rate 47; Glucose Fasting 181 mg/dL (60-99); Potassium 4.7 mmol/L (3.3-5.1); Sodium 139 mmol/L (135-145)
== END 2023-10-20 08:47 | disposition home or self-care (01) ==
LOC: HO.10HDL 08:46
PROVIDERS: Visit Provider Family Medicine
DX: E11.9 Type 2 diabetes mellitus without complications (principal); I10 Essential (primary) hypertension; K75.81 Nonalcoholic steatohepatitis (NASH)
CPT/HCPCS: 36415; 80051; 82565; 82947; 83036; 84450; 84460; 84520

== ENCOUNTER → 2024-02-13 07:41 | Outpatient (REF) | payer OTHER, SELFPAY ==
--- NOTE | 2024-02-13 07:44 | CA_ITS ---
Transthoracic Echocardiogram Amended Patient (Last, First, Middle): River Bass A Gender: Male Date of : 1955 Age: 68 Procedure Date: 02/13/2024 Procedure Type: Transthoracic Echocardiogram Location: OP Height: 175.26 cm Weight: 115.67 kg BSA: 2.29 m2 Heart Rate: bpm BP: 110 / 60 mmHg Stock Fitter: TO Referring MD: Loan Domingo HUMAN FACTORS SCIENTIST-C Symptoms: I25.10 - Atherosclerotic heart disease of [place] coronary artery without... Study Quality: Fair/Contrast Conclusions: - 1. Technically limited study 2. Normal LV ejection fraction 60 65% with mild LVH and grade 1 diastolic dysfunction 3. Calcified aortic valve changes noted with normal cardiac valvular Doppler 4. Mildly dilated ascending aorta Findings Procedure Information Contrast agent, definity, is being given per protocol without apparent complications. Left Ventricle Normal left ventricular size and systolic function. There is mildly increased left ventricular wall thickness. The visually estimated ejection fraction is between 60-65%. Spectral Doppler is indicative of an impaired relaxation filling pattern. E/E prime ratio is <8, consistent with normal filling pressures. Evidence suggests grade I (mild) diastolic dysfunction. Right Ventricle The right ventricle was not well visualized. Atria The left atrium is normal in size. Interatrial shunt cannot be excluded. The right atrium was not well visualized. Aortic Valve There is mild calcification of the aortic valve. There is moderate thickening of the aortic valve. There is no aortic valve stenosis. There is no aortic valve regurgitation. Mitral Valve There is mild anterior mitral leaflet thickening. There is trace mitral valve regurgitation. There is no mitral valve stenosis. Tricuspid Valve The tricuspid valve was not well visualized. Tricuspid regurgitation envelope is inadequate for calculation of right ventricular systolic pressure. Indeterminate right atrial pressure. Great Vessels The pulmonary artery was not well visualized. There is mild dilatation of the ascending aorta measuring 4.30 cm. Venous The inferior vena cava was not well visualized. Pericardium/Pleural The pericardium was not well visualized. Prior Study Comparison No significant change compared to prior study dated: 10/05/2020. Measurements 2D Linear Measurements IVSd: 1.31 0.6-0.9/0.6-1.0 cm LVIDd: 4.49 3.9-5.3/4.2-5.9 cm LVIDd Index: 1.96 2.4-3.2/2.2-3.1 cm/m2 LVIDs: 3.52 2.0-3.6 cm LVPWd: 1.20 0.7-1.1 cm LA Diam: 3.90 2.7-3.8/3.0-4.0 cm LAIDs Index: 1.70 1.5-2.3 cm/m2 LV Mass: 262.58 67-162/88-224 g LV Mass Index: 114.66 43-95/49-115 g/m2 LVOT Diam: 2.40 3.0+(-)1.3 cm 2D Volumes LA Vol: 39.40 2D Systolic Function EF 4C: 61.60 >55% EF 2C: 58.70 >55% EF BiP: 60.40 >55% Mitral Valve MV Pk E: 0.45 MV PK A: 0.59 MV Decel Time: 324.00 E/A: 0.80 E'Lateral: 6.53 E'Medial: 3.70 E/E' Med: 12.30 E/E' Lat: 7.00 PHT: 95.00 MVA PHT: 2.32 Decel [place]: 1.40 Aortic Valve AoV Pk Rinku: 1.33 AoV Mn Rinku: 0.91 AoV VTI: 0.30 AoV Pk Grad: 7.00 Aov Mn Grad: 4.00 SAL Cont.VTI: 3.23 LVOT LVOT Pk Rinku: 0.99 LVOT Mn Rinku: 0.61 LVOT VTI: 0.22 LVOT Pk Grad: 4.00 LVOT Mn Grad: 2.00 LVOT Diam: 2.40 LVOT Area: 4.52 Diastolic Function MV Pk E: 0.45 MV Pk A: 0.59 E/A: 0.80 E'Medial: 3.70 E/E' Med: 12.30 E' Laterial: 6.53 E/E' Lat: 7.00 Right Ventricle TAPSE (mm): 10.20 TVS' Rinku: 8.92 Tricuspid Valve TR Pk Rinku: 2.33 TR Pk Grad: 22.00 Great Vessels Aorta Sinus of Valsalva: 4.07 2.0-3.5 cm Ao Asc: 4.30 2.1-3.4 cm Ao Arch: 2.50 Updated in Other Vendor System with Status of Final Julio Rangel MD electronically signed on 02/13/2024 2:30:24 PM with status of Final
== END ==
LOC: HO.CARD 07:41
PROVIDERS: PCP Family Medicine; Visit Provider Nurse Practitioner Family
DX: I25.10 Atherosclerotic heart disease of native coronary artery without angina pectoris (principal); Z95.1 Presence of aortocoronary bypass graft
CPT/HCPCS: 93306; Q9957

== ENCOUNTER → 2024-02-13 07:44 | Outpatient (BNV) | payer OTHER, SELFPAY | PROVIDERS: PCP Family Medicine; Visit Provider Internal Medicine Cardiovascular Disease | DX: I35.8 Other nonrheumatic aortic valve disorders (principal); I51.89 Other ill-defined heart diseases | CPT/HCPCS: 93306 ==

== ENCOUNTER 2024-03-18 08:49 | Outpatient (REF) | payer OTHER, SELFPAY ==
[2024-03-18 11:28] LABS: Alanine Aminotransferase 15 U/L (0-40); Anion Gap 14 (12-20); Aspartate Amino Transferase 15 U/L (5-37); Blood Urea Nitrogen 24 mg/dL (9-16); Carbon Dioxide 27 mmol/L (22-29); Chloride 104 mmol/L (96-108); Estimated Glomerular Filt Rate 48; Glucose Fasting 187 mg/dL (60-99); Potassium 4.8 mmol/L (3.3-5.1); Sodium 140 mmol/L (135-145)
[2024-03-18 11:36] LABS: Estimated Average Glucose 240 mg/dL
[2024-03-18 11:56] LABS: Creatinine Urine 197.89 mg/dL
== END 2024-03-18 08:50 | disposition home or self-care (01) ==
LOC: HO.10HDL 08:49
PROVIDERS: Visit Provider Family Medicine
DX: I10 Essential (primary) hypertension (principal); E11.9 Type 2 diabetes mellitus without complications; E78.00 Pure hypercholesterolemia, unspecified
CPT/HCPCS: 36415; 80051; 82043; 82550; 82565; 82570; 82947; 83036; 84450; 84460; 84520

== ENCOUNTER 2024-10-07 09:18 | Outpatient (REF) | payer OTHER, SELFPAY ==
[2024-10-07 10:42] LABS: Estimated Average Glucose 243 mg/dL; Hemoglobin A1c % 10.1 % (<6.0)
[2024-10-07 11:15] LABS: Alanine Aminotransferase 15 U/L (0-40); Anion Gap 9 (12-20); Aspartate Amino Transferase 21 U/L (5-37); Blood Urea Nitrogen 20 mg/dL (9-16); Carbon Dioxide 29 mmol/L (22-29); Chloride 107 mmol/L (96-108); Estimated Glomerular Filt Rate 55; Glucose Fasting 141 mg/dL (60-99); Potassium 5.1 mmol/L (3.3-5.1); Sodium 140 mmol/L (135-145)
== END 2024-10-07 09:19 | disposition home or self-care (01) ==
LOC: HO.HMGCLDS 09:18
PROVIDERS: PCP Family Medicine; Visit Provider Family Medicine
DX: I10 Essential (primary) hypertension (principal); E11.9 Type 2 diabetes mellitus without complications; E78.00 Pure hypercholesterolemia, unspecified; Z79.899 Other long term (current) drug therapy
CPT/HCPCS: 36415; 80051; 82550; 82565; 82947; 83036; 84450; 84460; 84520

== ENCOUNTER 2025-03-04 10:57 | Outpatient (REF) | payer OTHER, SELFPAY ==
--- NOTE | ~2025-03-04 | XR_ITS ---
EXAMINATION: XR SHOULDER, RIGHT CLINICAL INFORMATION: M25.511 - Pain in right shoulder COMPARISON: May 11, 2016 TECHNIQUE: AP external rotation, Grashey, scapular Y, and axillary views of the right shoulder. FINDINGS: There is moderate narrowing of the subacromial space, increased since the prior. Marginal osteophytes are present along the medial humeral head and inferior glenoid. There is ossification of the superior labrum. There are 2 bands of vague sclerosis extending between the medial anatomic neck of humerus. One band courses along the anatomic neck, and the other vein courses through the surgical neck. These have developed since the prior study. On the axillary view, there are circumferential moderate sized marginal osteophytes involving the humeral head. Incidental note is made of mediastinal wires. The visible portions of the right lung are clear. XR/XR shoulder RT min 2V IMPRESSION: Full-thickness rotator cuff tear with subacromial space narrowing. Moderate degenerative changes of the glenohumeral joint. Vague sclerotic bands in the medial humeral head neck junction are probably related to osteophytes, but if there is a history of trauma, fracture is not ruled out. Electronically signed by: Mckinley Metz MD 03/04/2025 01:08 PM EDT
[2025-03-04 13:06] LABS: Alanine Aminotransferase 16 U/L (0-40); Albumin Level 4.1 g/dL (3.5-5.0); Alkaline Phosphatase 128 U/L (39-117); Anion Gap 13 (12-20); Aspartate Amino Transferase 22 U/L (5-37); Blood Urea Nitrogen 22 mg/dL (9-16); Calcium 9.0 mg/dL (8.4-10.2); Carbon Dioxide 28 mmol/L (22-29); Chloride 102 mmol/L (96-108); Cholesterol 136 mg/dL (<200); Estimated Glomerular Filt Rate 45; HDL Cholesterol 35 mg/dL (>40); Potassium 5.5 mmol/L (3.3-5.1); Sodium 137 mmol/L (135-145); Total Protein 7.1 g/dL (6.5-8.0); Triglycerides 107 mg/dL (<150)
[2025-03-04 13:25] LABS: Prostate Specific Antigen 1.70 ng/mL (<0.05-4.0)
[2025-03-04 14:20] LABS: Microalbum/Creatinine Ratio Ur 672.3 ug/mg cr (<30)
== END 2025-03-04 10:58 | disposition home or self-care (01) ==
LOC: HO.XRAY 10:57
PROVIDERS: PCP Physician Assistant; Visit Provider Physician Assistant
DX: Z12.5 Encounter for screening for malignant neoplasm of prostate (principal); E11.8 Type 2 diabetes mellitus with unspecified complications; I10 Essential (primary) hypertension; M25.511 Pain in right shoulder; I25.10 Atherosclerotic heart disease of native coronary artery without angina pectoris; E78.5 Hyperlipidemia, unspecified; I26.99 Other pulmonary embolism without acute cor pulmonale; Z79.82 Long term (current) use of aspirin; Z79.4 Long term (current) use of insulin; Z79.84 Long term (current) use of oral hypoglycemic drugs; Z79.899 Other long term (current) drug therapy
CPT/HCPCS: 36415; 73030; 80048; 80061; 80076; 82043; 82570; 83036; 84153; 99202

== ENCOUNTER 2025-03-04 10:57 | Outpatient (AMB) | payer OTHER, SELFPAY ==
--- OUTSIDE RECORDS SUMMARY | 2024-07-30 12:00 | XMS_ITS ---
Author Organization [facility] Address [address] [place] [address] Care Team Providers Care Travel Writer Name Role Phone Flakito Richard MD Primary Care Provider Unavailab Merrick Rao Unavailable [phone] Medications Medication SIG (Take, Route, Frequency, Duration) [...] Active Encounters Encounter Location Date Provider Diagnosis [facility] [address] [place] [address] 07/30/2024 Merrick Denise Plan Of Treatment Next Appt Details Provider Name:Merrick Lincoln Howie , 04/29/2025 10:00:00 AM, [address] [place], [address], Progress Notes * River BASS ADOB: 4 (69 yo M)Acc No.[id number]:07/30/2024 Progress Note Patient: River VERDUGO Provider: Estephanie Denise DPM :1955 A ge:69 Y S ex:Male Date:07/30/2024 Address:[address] [place], [place] [address] Pcp:Flakito Richard MD Subjective: * Chief Complaints: * * Medical [...] DPM Date: 0 07/30/2024 Generated for Gabriel dinh/Gael/Nia on: 0 03/04/2025 11:53 AM EDT
--- NOTE | 2025-03-04 11:02 | A.OFFPC_ITS ---
Vital Signs 03/04/25 11:14 Height 5 ft 9 in Weight 119.748 kg BMI 39.0 BP 124/62 Respiration 16 Pulse 61 Pulse Source Pulse Oximeter Temp 96.6 F L Temp Source Temporal Artery Scan Pulse Oximetry (%) 93 Oxygen Delivery Method Room Air Intake Visit Reasons: 3 MO F/UP - ROBBY PT Cruise Coordinator Required: No Accompanied by: Self / Same As Patient Allergies heparin Adverse Reaction (Severe, Verified 03/04/25 11:02) HIT Medication List - Last Reconciled 03/04/25 by AGUSTIN Mao aspirin 81 mg PO DAILY atorvastatin 40 mg PO BEDTIME doxazosin 4 mg PO BEDTIME gabapentin 300 mg PO BEDTIME insulin glargine-yfgn 25 units subcut BEDTIME insulin lispro (Humalog KwikPen (U-100) Insulin) 5 units subcut TID insulin lispro 100 units subcut DIRECTED metformin 500 mg PO DAILY metoprolol succinate ER 25 mg PO DAILY pantoprazole 40 mg PO DAILY pen needle, diabetic (Aqinject Pen Needle) As directed sertraline 50 mg PO QAM tamsulosin 0.4 mg PO DAILY Tobacco use date assessed: 03/04/25 Fall risk assessment: No Falls in past year Last assessed Fall Risk: 03/04/25 Dental Screening Dental Screen Date: 03/04/25 Did you have a dental visit in the last 12 months?: Yes Did you have a dental problem in the last 6 months where you did not have access to dental care?: No Was dental information given to patient?: No HPI HPI Comments History of Present Illness Details 69-year-old male with history of type 2 diabetes complicated by diabetic polyneuropathy, GERD, ONEYDA, hyperlipidemia, coronary artery disease, hypertension, history of CVA, obesity presents to the office today for management of chronic conditions and to establish care. Type 2 diabetes-overdue for A1c. Last A1c 10.1%. He reports he is using 25 units of Lantus daily but is not using his prandial insulin. He is also on metformin 500 mg daily. BPH-controlled with doxazosin and tamsulosin GERD-stable on pantoprazole Olxvontfyoic-iescxyeyslvvun-owkvzzkm artery disease-stable. S/p cardiac catheterization with subsequent CABG x3. Following with Dr. Waite. No recent symptoms. On aspirin, atorvastatin, metoprolol. Blood pressure controlled in the office ONEYDA-noncompliant with CPAP Concerns: R shoulder pain x 1 year, no injury- radiates into humerus- feels aching. numbeness into humerus. no weakness. constant 5/10. not using anything occ asa Health maintenance: S colonoscopy 01/2020 with 10 year follow-up advised, next to 01/26 30 ROS: General: No fevers, malaise, unintentional weight loss HEENT: No blurred vision, diplopia. No sore throat, nasal congestion, rhinorrhea, sinus pain, ear pain Cardiovascular: No chest pain, palpitations, or leg edema Respiratory: No shortness of breath, wheezing, cough GI: No abdominal pain, nausea, vomiting, diarrhea, constipation, melena, hematochezia : No dysuria, hematuria, increased urinary frequency, decreased urinary output MSK: No myalgia, back pain Neuro: No headaches, weakness, paresthesias Skin: No rashes or lesions EXAM: Constitutional - Awake and Alert, No apparent distress Eyes - PERRL Cardiovascular - S1S2, RRR, No edema Respiratory - Normal lung expansion, Normal respiratory effort, No respiratory distress, CTA bilaterally Extremities - no calf tenderness bilaterally, no swelling MSK - right shoulders without any effusion, erythema, warmth. There is tenderness to palpation over the AC joint. No neck pain . Pain with extension Skin - Warm/Dry Neurological - Alert & oriented x3. 5/5 strength bue Psychological - Appropriate affect [facility] Medical History (Updated 03/04/25 @ 11:41 by AGUSTIN Mao) HIT (heparin-induced thrombocytopenia) Atherosclerotic cardiovascular disease HLD (hyperlipidemia) CAD (coronary artery disease) History of stroke ONEYDA (obstructive sleep apnea) Morbid obesity Type 2 diabetes mellitus with unspecified complications Essential hypertension Surgical History (Updated 03/03/25 @ 16:00 by Jessy Alfredo) History of colonoscopy (~01/20/20) Status post aorto-coronary artery bypass graft History of coronary artery bypass graft x 3 (~05/21/20) S/P cardiac cath (~04/2020) History of hip replacement Family History Father Cardiovascular disease Mother Cardiovascular disease Social History Housing: Apartment Alcohol intake: former Patient Tobacco Use Status: Never used Tobacco e-Cigarette/Vaping Use: Never Used service: No Current occupational status: retired Cognitive needs: Yes (Cane) Hearing needs: No Vision needs: Yes (Rx glasses) Questionnaire PHQ-9 Over the last 2 weeks, how often have you been bothered by any of the following problems? 1. Little interest or pleasure in doing things: not at all 2. Feeling down, depressed, or hopeless: several days 3. Trouble falling or staying asleep, or sleeping too much: several days 4. Feeling tired or having little energy: several days 5. Poor appetite or overeating: not at all 6. Feeling bad about yourself - or that you are a failure or have let yourself or your family down: several days 7. Trouble concentrating on things, such as reading the newspaper or watching television: not at all 8. Moving or speaking so slowly that other people could have noticed. Or the opposite - being so fidgety or restless that you have been moving around a lot more than usual: several days 9. Thoughts that you would be better off or of hurting yourself in some way: not at all Total score: 5 Source: Developed by Drs. Jose E Puentes, Flavia Breaux, Bhanu Marshall and colleagues, with an educational ricco from [employer]. Thrive Questionnaire Date Thrive assessed: 03/04/25 I am a: Patient What is your living situation today?: I have a steady place to live Within the past 12 months, did the food you bought not last and you didn't have the money to get more?: Never true Within the past 12 months, did you worry whether your food would run out before you got money to buy more?: Never true Do you have trouble paying for medicines?: No Do you have trouble getting transportation to medical appointments?: No Do you have trouble paying your heating and electricity bill?: No Do you have trouble taking care of your child, family member or friend?: No Do you have trouble with day-to-day activities such as bathing, preparing meals, shopping, managing finances, etc.?: No Are you currently unemployed and looking for a job?: No Are you interested in more education?: No Please select the resources that you would like help with: None THRIVE Score: 0 JAXON-7 AMB Questionnaire JAXON-7 Date JAXON - 7 assessed: 03/04/25 Feeling nervous, anxious, or on edge: 0 = Not at all Not being able to stop or control worryin = Not at all Worrying too much about different things: 1 = Several days Trouble relaxin = Not at all Being so restless that it is hard to sit still: 0 = Not at all Becoming easily annoyed or irritable: 1 = Several days Feeling afraid as if something awful might happen: 0 = Not at all Total JAXON-7 score (0-4 normal; 5-9 mild; 10-14 moderate; 15-21 severe): 2 Source: Developed by Drs. Jose E Puentes, Flavia Breaux, Bhanu Marshall and colleagues, with an educational ricco from [employer]. Physical exam (Primary Care) Vital Signs: Last Vital Signs Temp 96.6 F L 03/04/25 11:14 Pulse 61 03/04/25 11:14 Resp 16 03/04/25 11:14 BP 124/62 03/04/25 11:14 Pulse Ox 93 03/04/25 11:14 Oxygen Delivery Method Room Air 03/04/25 11:14 BMI result Body Mass Index 39.0 Tobacco/Smoking Status: Tobacco use Status Tobacco use date assessed 03/04/25 03/04/25 11:16 Patient Tobacco Use Status Never used Tobacco 03/04/25 11:13 e-Cigarette/Vaping Use Never Used 03/04/25 11:16 PHQ-9: PHQ-9 Score PHQ-9: Total score 5 03/04/25 11:32 Thrive Assessment: Date of Thrive Assessment Date Thrive assessed 03/04/25 03/04/25 11:13 Coding Level of Care Code New Pt Level 4 (76934) Complex EM visit Add On G2211 Diagnoses Essential hypertension I10 CAD (coronary artery disease) I25.10 Type 2 diabetes mellitus with unspecified complications E11.8 Right shoulder pain M25.511 Assessment & Plan Assessment & Plan (1) Essential hypertension: Code(s): I10 - Essential (primary) hypertension Category: Medical Plan: Controlled. Continue metoprolol (2) CAD (coronary artery disease): Code(s): I25.10 - Atherosclerotic heart disease of [place] coronary artery without angina pectoris Category: Medical Plan: Stable. No chest pains. Continue following with Cardiology and continue current therapies (3) Type 2 diabetes mellitus with unspecified complications: Code(s): E11.8 - Type 2 diabetes mellitus with unspecified complications Category: Medical Plan: Uncontrolled. Updated hemoglobin A1c ordered. Continue current therapies for now, to be adjusted as needed pending results. He is referred to endocrinology as well for further management as well as for consideration of continuous glucose monitor (4) Right shoulder pain: Code(s): M25.511 - Pain in right shoulder Category: Medical Plan: XR of the right shoulder was ordered. Referred to Orthopedic surgery Plan Follow-up in the office in 3 months. Labs to be completed following visit today Orders: Orders Liver Panel Today E11.8 - Type 2 diabetes mellitus with unspecified complications, E78.5 - Hyperlipidemia, unspecified, I10 - Essential (primary) hypertension, I25.10 - Atherosclerotic heart disease of [place] coronary artery without angina pectoris, I26.99 - Other pulmonary embolism without acute cor pulmonale Hemoglobin A1c Today E11.8 - Type 2 diabetes mellitus with unspecified complications, E78.5 - Hyperlipidemia, unspecified, I10 - Essential (primary) hypertension, I25.10 - Atherosclerotic heart disease of [place] coronary artery without angina pectoris, I26.99 - Other pulmonary embolism without acute cor pulmonale Prostate Specific Antigen Today E11.8 - Type 2 diabetes mellitus with unspecified complications, E78.5 - Hyperlipidemia, unspecified, I10 - Essential (primary) hypertension, I25.10 - Atherosclerotic heart disease of [place] ebony nary artery without angina pectoris, I26.99 - Other pulmonary embolism without acute cor pulmonale Basic Metabolic Panel Today E11.8 - Type 2 diabetes mellitus with unspecified complications, E78.5 - Hyperlipidemia, unspecified, I10 - Essential (primary) hypertension, I25.10 - Atherosclerotic heart disease of [place] coronary artery without angina pectoris, I26.99 - Other pulmonary embolism without acute cor pulmonale Lipid Panel Today E11.8 - Type 2 diabetes mellitus with unspecified complications, E78.5 - Hyperlipidemia, unspecified, I10 - Essential (primary) hypertension, I25.10 - Atherosclerotic heart disease of [place] coronary artery without angina pectoris, I26.99 - Other pulmonary embolism without acute cor pulmonale Microalbumin, Random (w Creat) Today E11.8 - Type 2 diabetes mellitus with unspecified complications, E78.5 - Hyperlipidemia, unspecified, I10 - Essential (primary) hypertension, I25.10 - Atherosclerotic heart disease of [place] coronary artery without angina pectoris, I26.99 - Other pulmonary embolism without acute cor pulmonale Referrals Orthopedics Referral M25.511 - Pain in right shoulder Endocrinology Referral E11.8 - Type 2 diabetes mellitus with unspecified complications Medications: New pen needle, diabetic (Aqinject Pen Needle) As directed 1,200 ea 0RF
[2025-03-04 11:14] VITALS: BP 124/62; PULSE 61; RESP 16; TEMP 35.9; O2SAT 93; BMI 39.0
--- OUTSIDE RECORDS SUMMARY | 2025-03-04 11:53 | XMS_ITS | Patient Health Record ---
Author Organization [facility] Address [address] [facility] [place] [address] Care Team Providers Care Fire Alarm Operator Name Role Phone Jose Manuel SORTO, Flakito Primary Care Provider Unavailab Merrick Rao Unavailable [phone] Allergies No Known Allergies Results Component Value Reference Range Notes HEMOGLOBIN A1C (GLYCOHEMOGLO BIN) Reviewed date:10/22/2024 01:50:26 PM Interpretation: Performing Lab: Notes/Report: HEMOGLOBIN A1C % (HH) 7.2 Reason For Referral No Information Medications Medication SIG (Take, Route, Frequency, Duration) Notes Start Date End Date Status Diclofenac Sodium 1 % APPLY 4 GRAMS TO PAINFUL AREA ON FOOT DIRECTED FOUR TIMES A DAY; Duration: 30 Active Gabapentin 300 MG 1 capsule before bedtime Orally Once a day Active Baby Aspirin Active Cyclobenzaprine HCl 5 MG 1 tablet as nee ded Orally Three times a day Active Lisinopril 40 MG 1 tablet Orally Once a day Active metFORMIN HCl 500 MG 1 tablet with meals Orally Twice a day Active Jardiance 10 MG 1 tablet Orally Once a day Active Lantus for OptiClik Active Voltaren 1 % Apply 4 grams to painful area on foot as directed Externally Four times a day; Duration: 30 days 09/10/2019 Not-Taking Extra Depth Orthopedic Shoes (1 Pair) with Customized Heat Molded Multidensity Innersoles (3 Pair) as directed Dx: NIDDM/Polyneuropathy (E11.42), Hammertoe Foot Deformity (M20.41,M20.42), Preulcerative Skin Lesion(s) (L85.1 01/30/2024 Active Atorvastatin Calcium 20 MG 1 tablet Orally Once a day Active Immunizations Vaccine Route Administration Date Status Comme nts COVID-19 Moderna Vaccine Unknown 09/29/2020 Administere d 1st Dose 08/24/20 Influenza Unknown 01/02/2018 Refused Influenza Unknown 04/10/2020 Refused Influenza Unknown 01/24/2025 Refused Social History Tobacco Use: Social History Observation Description Date Details (start date - stop date) Never Smoker NA - NA Tobacco use other than smoking: Question Answer Notes Are you an other tobacco user? No Tobacco Control (Standard) Question Answer Notes Tobacco use: Nonsmoker Additional Findings: Tobacco non-user Current no nsmoker AUDIT-C (Standard) Question Answer Notes Did you have a drink containing alcohol in the p ast year? No Points 0 Interpretation Negative Problems Problem Type SNOMED Code ICD Code Onset Dates Problem Status W/U Status Risk Notes Problem Other hammer toe(s) (acquired), right foot (M20.41) Active confirmed Problem Acquired hammer toe of left foot ([id number] ) Other hammer toe(s) (acquired), left foot (M20.42) Active confirmed Problem Polyneuropathy due to type 2 diabetes mellitus (051062685) Type 2 diabetes mellitus with diabetic polyneuropathy (E11.42) Active confirmed Vital Signs Blood pressure diastolic 65 mm Hg 01/24/2025 Height 9ud02rt in 01/24/2025 Blood pressure systolic 126 mm Hg 01/24/2025 Weight 245 lbs 01/24/2025 BMI 35.15 kg/m2 01/24/2025 Procedures Procedure Date Ordered Date Performed Result Body Sit e 02422-AULLWIX NAIL, 6 OR MORE 04/30/2024 N/A 34695-OOGB SKIN LESIONS, 2 TO 4 04/30/2024 N/A 03534-RXDQOMI NAIL, 6 OR MORE 10/22/2024 N/A 28374-AGAN SKIN LESIONS, 2 TO 4 10/22/2024 N/A 39283-RPTDRBW NAIL, 6 OR MORE 01/24/2025 N/A 98426-YZXC SKIN LESIONS, 2 TO 4 01/24/2025 N/A Encounters Encounter Location Date Provider Diagnosis [facility] [address] [place] [address] 04/30/2024 Merrick Denise Type 2 diabetes mellitus with diabetic polyneuropathy E11.42 ; Tinea unguium B35.1 and Skin ulcer of toe of right foot, limited to breakdown of skin L97.[address] [address] 10/22/2024 Merrickkenzie Bradenier Type 2 diabetes mellitus with diabetic polyneuropathy E11.42 and Tinea unguium B35.[address] [address] 01/24/2025 Merrickkenzie SaxenaHowie Type 2 diabetes mellitus with diabetic polyneuropathy E11.42 and Tinea unguium B35.[address] [address] 07/30/2024 Merrick Denise Assessments Encounter Date Diagnosis (ICD Code) Assessment Notes Treatment Notes Treatment Clinical Notes Section Notes 04/30/2024 Type 2 diabetes mellitus with diabetic polyneuropathy (ICD-10 - E11.42) 04/30/2024 Tinea unguium (ICD-10 - B35.1) 10/22/2024 Type 2 diabetes mellitus with diabetic polyneuropathy (ICD-10 - E11.42) 10/22/2024 Tinea unguium (ICD-10 - B35.1) 01/24/2025 Type 2 diabetes mellitus with diabetic polyneuropathy (ICD-10 - E11.42) 01/24/2025 Tinea unguium (ICD-10 - B35.1) 04/30/2024 Skin ulcer of toe of right foot, limited to breakdown of skin (ICD-10 - L97.511) Response to treatment,Nonap plicable Patient Educated with: WOUND CARE INSTRUCTIONS. pdf (WOUND CARE INSTRUCTIONS. pdf) 04/30/2024 Other Plan Of Treatment Pending Test Test Name Order Date 75594-SAAGZKT NAIL, 6 OR MORE 10/30/2020 42246-BTLWEZY NAIL, 6 OR MORE 01/29/2021 78872-UHIEQSR NAIL, 6 OR MORE 06/22/2021 03021-CTQPLDZ NAIL, 6 OR MORE 12/30/2022 12200-BZBUVUQ NAIL, 6 OR MORE 01/30/2024 25615-YCWIBAP NAIL, 6 OR MORE 04/30/2024 48319-RYPLYES NAIL, 6 OR MORE 10/22/2024 86261-ZJSPIEP NAIL, 6 OR MORE 01/24/2025 67671-SWRY SKIN LESIONS, 2 TO 4 01/25/20 25 85852-DIPU SKIN LESIONS, 2 TO 4 06/22/20 65798-EUWZ SKIN LESIONS, 2 TO 4 10/23/19 41263-ERUZ SKIN LESIONS, 2 TO 4 04/30/20 49103-IQKA SKIN LESIONS, 2 TO 4 01/30/20 24 02583-AFQE SKIN LESIONS, 2 TO 4 12/31/19 88604-BQUQ SKIN LESIONS, 2 TO 4 01/30/20 88813-CLXN SKIN LESIONS, 2 TO 4 10/31/19 72151,Q4097-LTZ TENDON SHEATH/LIGAMENT 0 01/02/2018 24864,E4125-FAH TENDON SHEATH/LIGAMENT 0 02/19/2019 99036,V9210-CBY TENDON SHEATH/LIGAMENT 1 28990,F0523-LFE TENDON SHEATH/LIGAMENT 0 01/29/2021 90857,H3740-PRE TENDON SHEATH/LIGAMENT 1 08/23/2020 Next Appt Details Provider Name:Merrick Denise , 04/29/2025 10:00:00 AM, [address] [facility], [place], [address], Insurance Providers Payer Name Payer Address Payer Phone Subscriber Number Group Number Insured Name Patient Relationship to Insured Coverage Start Date Coverage End Date [facility] [employer] Claims [address] [place] [phone] [facility] [id number] [place] Bass Self - patient is the insured Medical (General) History Medical History History ICD Code Arthritis Back,Hip,and Knee pain Diabetes mellitus - Neuropathy Heart disease Stroke Measles Mumps Chicken pox Hypertension Cholesterol Surgical History Surgery Date(Month/Year) hernia hip replacement x 2 triple bypass 05/2020 cataract surgery Hospitalization History Reason Date(Month/Year) [facility] -Heart condition 06/2017
--- OUTSIDE RECORDS SUMMARY | 2025-03-04 11:53 | XMS_ITS | Patient Health Record ---
Demographics Address [address] [place] Mobile Email Address Preferred Language en Marital Status unmarried Mandaen Affiliation Unknown Race White Ethnic Group Not or Lati no Author Organization [facility] Address [address] [place] [address] Care Team Providers Care Information Systems Security Developer Name Role Phone MARGARITA EAGLE Primary Care Provider Jose E Funez [phone] Reason For Referral No Information Medications Medication SIG (Take, Route, Frequency, Duration) Notes Start Date End Date Status Atorvastatin Calcium 20 MG 1 tablet Orally Once a day Active Gabapentin 300 MG TAKE 1 CAPSULE AT BE DTIME Oral for 30 Active Aspirin 81 81 MG 1 tablet Orally Once a day for 30 day(s) Active metFORMIN HCl 500 MG Orally Active Lantus 100 UNIT/ML as directed/18 units Subcutaneous at night Active Sertraline HCl 50 MG TAKE 1 TABLET BY [facility] EVERY DAY IN THE MORNING DIRECTED Oral for 30 Active Immunizations Vaccine Route Administration Date Status Comme nts Influenza Unknown 11/15/2019 Refused Problems Problem Type SNOMED Code ICD Code Onset Dates Problem Status W/U Status Risk Notes Problem 611104622 Encounter for screening for malignant neoplasm of colon (Z12.11) Active confirmed Problem [id number] Preprocedural examination (Z01.818) Active confirmed Problem 155765103 Long-term use of aspirin therapy (Z79.82) Active confirmed Problem 750280998 Hx of adenomatou s colonic polyps (Z86.010) Active confirmed Plan Of Treatment Future Test Test Name Order Date COLONOSCOPY 07/16/2014 COLONOSCOPY 11/15/2019 Next Appt Details Provider Name:Jose E Welsh , 06/19/2025 10:20:00 AM, [address], [address], [place], [address], Insurance Providers Payer Name Payer Address Payer Phone Subscriber Number Group Number Insured Name Patient Relationship to Insured Coverage Start Date Coverage End Date [facility] [address] Attn Claims AGUSTIN Bosch [id number] ROWAN FOLEY Self - patient is the insured Medical (General) History Medical History History ICD Code Denies PA,CVA,Lung disease,renal disease IDDM HTN Hyperlipidemia Screening colonoscopy 09/2014 with 3 smal l tubular adenomas removed Neuropathy Depression Vertigo Sleep apnea, but not using CPAP He describes a possible stre ss test several years ago at [facility], but is not very clear about the details Surgical History Surgery Date(Month/Year) Left hip replacement 2007 Right hip replacement 09/2013
--- OUTSIDE RECORDS SUMMARY | 2025-03-04 11:53 | XMS_ITS | Clinical Summary ---
Author Organization [facility], Address [address] [place] [address] [place] [address] Phone Care Team Providers Care Patient Relations Director Name Role Phone Unavailable Primary Care Provider Unavailabl e Allergies Active Allergy Reactions Criticality Noted Date Comments Heparin 01/19/2022 Medications tamsulosin (Flomax) 0.4 MG 24 hr capsule Take 0.4 mg by mouth 1 (one) time each day Active furosemide (LASIX) 40 MG tablet Take 40 mg by mouth 2 (two) times a day Active amiodarone (PACERONE) 200 MG tablet Take 200 mg by mouth 1 (one) time each day Active clopidogrel (PLAVIX) 75 MG tablet Take 75 mg by mouth 1 (one) time each day Active colchicine 0.6 MG tablet Take 0.6 mg by mouth 1 (one) time each day Active docusate sodium (COLACE) 100 MG capsule Take 100 mg by mouth 2 (two) times a day Active gabapentin (NEURONTIN) 100 MG capsule Take 100 mg by mouth 3 (three) times a day Active pantoprazole (PROTONIX) 40 MG EC tablet Take 40 mg by mouth 1 (one) time each day before breakfast Do not crush, chew, or split. Active atorvastatin (LIPITOR) 20 MG tablet Take 20 mg by mouth 1 (one) time each day Active sertraline (ZOLOFT) 100 MG tablet Take 100 mg by mouth 1 (one) time each day Active metFORMIN (GLUCOPHAGE) 1000 MG tablet Take 1,000 mg by mouth 2 (two) times a day with meals Active metoprolol succinate XL (TOPROL-XL) 25 MG 24 hr tablet Take 25 mg by mouth 1 (one) time each day Do not crush or chew. Active Active Problems Problem Noted Date Diagnosed Date Essential (primary) hypertension 09/01/2020 Hyperlipidemia 09/01/2020 Social History Tobacco Use Types Packs/Day Years Used Date Smoking Tobacco: Never Smokeless Tobacco: Never Alcohol Use Standard Drinks/Week Comments Not Currently 0 (1 standard drink = 0.6 oz pur e alcohol) Sex and Gender Information Value Date Recorded Sex Assigned at Not on file Legal Sex Male 11:53 AM EST Gender Identity Not on file Sexual Orientation Not on file Last Filed Vital Signs Vital Sign Reading Time Taken Comments Blood Pressure 128/60 03/18/2021 4:00 PM EDT Pulse - - Temperature - - Respiratory Rate - - Oxygen Saturation - - Inhaled Oxygen Concentration - - Weight - - Height - - Body Mass Index - - Plan of Treatment Health Maintenance Due Date Last Done Comments Colorectal Cancer Screening: Annual FOBT 2003 Colorectal Cancer Screening: Colonoscopy 2003 Colorectal Cancer Screening: Sigmoidoscopy 2003 Pneumococcal Vaccine: 50+ Ye ars (1 of 1 - PCV) 2004 Influenza Vaccine (#1) 2025 Hepatitis B Vaccine Aged Out No longe r eligible based on patient's age to complete this topic Insurance Medicare
== END 2025-03-04 11:47 | disposition home or self-care (01) ==
LOC: HO.HMCHD 10:58
PROVIDERS: PCP Family Medicine; Visit Provider Physician Assistant
DX: I10 Essential (primary) hypertension (principal); I25.10 Atherosclerotic heart disease of native coronary artery without angina pectoris; E11.8 Type 2 diabetes mellitus with unspecified complications; M25.511 Pain in right shoulder

== ENCOUNTER → 2025-03-04 12:19 | Outpatient (BNV) | payer OTHER, SELFPAY | PROVIDERS: PCP Physician Assistant; Visit Provider Radiology Diagnostic Radiology | DX: M75.121 Complete rotator cuff tear or rupture of right shoulder, not specified as traumatic (principal) | CPT/HCPCS: 73030 ==

== ENCOUNTER 2025-05-27 10:30 | Outpatient (AMB) | payer OTHER, SELFPAY ==
--- NOTE | 2025-05-27 10:43 | MHC.PC.OV ---
Vital Signs 05/27/25 10:50 Height 5 ft 8.23 in Weight 272 lb BMI 41.1 BP 154/64 H Blood Pressure Location Rt brachial Position Sitting Respiration 24 H Pulse 59 Pulse Source Pulse Oximeter Temp 97.8 F Temp Source Temporal Artery Scan Pulse Oximetry (%) 92 Oxygen Delivery Method Room Air Intake Visit Reasons: 3 MO F/UP - see comments Fitter Placer Required: No Accompanied by: Self / Same As Patient Allergies heparin Adverse Reaction (Severe, Verified 05/27/25 10:43) HIT Medication List - Last Reconciled 05/27/25 by Walker Pruitt MD aspirin 81 mg PO DAILY atorvastatin 40 mg PO BEDTIME [diabetic shoe Diabetic shoes to be worn daily; ] doxazosin 4 mg PO BEDTIME gabapentin 300 mg PO BEDTIME insulin glargine-yfgn 30 units (0.3 mL) subcut BEDTIME insulin lispro 100 units subcut DIRECTED insulin lispro (Humalog KwikPen (U-100) Insulin) 8 units (0.08 mL) subcut TID lancets (Adspired TechnologiesTouch Delica Plus Lancet) As directed metformin 500 mg PO DAILY metoprolol succinate ER 25 mg PO DAILY pantoprazole 40 mg PO DAILY pen needle, diabetic (Aqinject Pen Needle) As directed sertraline 50 mg PO QAM tamsulosin 0.8 mg (2 x 0.4 mg) PO BEDTIME Tobacco use date assessed: 03/04/25 Dental Screening Dental Screen Date: 03/04/25 HPI HPI Comments History of Present Illness Details History of Present Illness The patient is a 69-year-old male presenting for management of multiple chronic conditions. He reports feeling sick for four days last week with a runny nose. The patient has a history of type 2 diabetes and demonstrates significant non-adherence to his treatment regimen. He has not been checking his blood sugars and has not been taking his short-acting insulin (lispro) during the day. He reports taking 25 units of long-acting insulin (glargine) at night and metformin 500 mg once daily. His last A1c was noted to be 10.5%. Associated with his uncontrolled diabetes, the patient has stage 3B chronic kidney disease, with a creatinine of 1.54 and potassium of 5.5 as of February. He also has a history of neuropathic pain, for which he takes gabapentin without significant relief, and reports arthralgias in his knees, ankles, and occasionally hips. He has obtained diabetic shoes after seeing a health information administrator a few weeks ago. For benign prostatic hyperplasia, he takes doxazosin 4 mg and tamsulosin 0.4 mg. He reports significant nocturia, waking up 4-5 times per night to urinate, but denies straining. His history includes hypertension, treated with metoprolol 25 mg, which is currently uncontrolled with a reading of 154/64 mmHg today. He also has heart disease, managed with aspirin, and hyperlipidemia, managed with atorvastatin 40 mg, with a previous LDL of 80 and total cholesterol of 136. He has not seen his medical office professional instructor in a long time. The patient has a history of sleep apnea but is non-adherent with CPAP therapy, stating he is unable to sleep with it. He also saw an orthopedist in August for shoulder pain. Medical History: - Type 2 diabetes mellitus - Chronic kidney disease, stage 3B - Hypertension - Heart disease - Hyperlipidemia - Benign prostatic hyperplasia - Diabetic neuropathy - Arthralgia of knees, ankles, and hips - Sleep apnea - Shoulder pain Medications: - Aspirin for heart disease - Atorvastatin 40 mg for hyperlipidemia - Doxazosin 4 mg at night for benign prostatic hyperplasia - Tamsulosin 0.4 mg at night for benign prostatic hyperplasia - Gabapentin for neuropathic pain - Insulin glargine 25 units at night for diabetes - Metformin 500 mg once a day for diabetes - Metoprolol 25 mg for hypertension - Insulin lispro (prescribed, not taking) Diagnostic Results: - Previous lipid panel: Total cholesterol 136, LDL 80. - Last A1c: 10.5%. - Last Creatinine: 1.54. - Last Potassium (from February): 5.5. Social History - The patient lives alone and does not have any assistance at home. - He has children in the area, but they are not actively involved in his care. - Non-adherent with CPAP therapy for sleep apnea. - Non-adherent with blood glucose monitoring and insulin regimen. [facility] Medical History (Updated 05/27/25 @ 11:59 by Walker Pruitt MD) Vertigo Abdominal pain BPH (benign prostatic hyperplasia) Diabetic polyneuropathy Hammer toes of both feet Proteinuria due to type 2 diabetes mellitus CKD stage 3 secondary to diabetes HIT (heparin-induced thrombocytopenia) Atherosclerotic cardiovascular disease HLD (hyperlipidemia) CAD (coronary artery disease) History of stroke ONEYDA (obstructive sleep apnea) Morbid obesity Type 2 diabetes mellitus with unspecified complications Essential hypertension Surgical History (Updated 03/03/25 @ 16:00 by Jessy Alfredo) History of colonoscopy (~01/20/20) Status post aorto-coronary artery bypass graft History of coronary artery bypass graft x 3 (~05/21/20) S/P cardiac cath (~04/2020) History of hip replacement Family History Father Cardiovascular disease Mother Cardiovascular disease Social History Housing: Apartment Alcohol intake: former Patient Tobacco Use Status: Never used Tobacco e-Cigarette/Vaping Use: Never Used service: No Current occupational status: retired Cognitive needs: Yes (Cane) Hearing needs: No Vision needs: Yes (Rx glasses) Questionnaire Thrive Questionnaire Date Thrive assessed: 03/04/25 JAXON-7 AMB Questionnaire JAXON-7 Date JAXON - 7 assessed: 03/04/25 Source: Developed by Drs. Jose E Puentes, Flavia Breaux, Bhanu Marshall and colleagues, with an educational ricco from [employer]. Review of Systems Narrative Review of Systems - General: Reports feeling down and out for 4 days last week. - Respiratory: Reports dyspnea on exertion when walking upstairs, especially in cold weather. - ENT: Reports a runny nose last week. - Cardiovascular: Denies chest pain. - Gastrointestinal: Reports intermittent sharp pain in the lower abdomen, usually in the morning or when lying down. - Genitourinary: Reports nocturia, waking 4-5 times per night. - Musculoskeletal: Reports joint pain in knees, ankles, and intermittently in his hips. - Neurological: Reports occasional room-spinning dizziness when turning his head while lying in bed. All systems reviewed & are unremarkable except as reviewed in HPI and above Physical exam (Primary Care) Vital Signs: Last Vital Signs Temp 97.8 F 05/27/25 10:50 Pulse 59 05/27/25 10:50 Resp 24 H 05/27/25 10:50 BP 154/64 H 05/27/25 10:50 Pulse Ox 92 05/27/25 10:50 Oxygen Delivery Method Room Air 05/27/25 10:50 BMI result Body Mass Index 41.1 Tobacco/Smoking Status: Tobacco use Status Tobacco use date assessed 03/04/25 05/27/25 10:52 Patient Tobacco Use Status Never used Tobacco 05/27/25 10:52 e-Cigarette/Vaping Use Never Used 05/27/25 10:52 Thrive Assessment: Date of Thrive Assessment Date Thrive assessed 03/04/25 05/27/25 10:52 Narrative Physical Exam General: +Alert and oriented, Well nourished, No acute distress. Eye: Pupils are equal, round and reactive to light, Intact accommodation, Extraocular movements are intact, Normal conjunctiva, Vision unchanged. HENT: Normocephalic, Atraumatic, Tympanic membranes are clear, Normal hearing, Oral mucosa is moist, No pharyngeal erythema, Ear canals patent. Respiratory: Lungs CTA bilaterally, No wheeze, Respirations are non-labored, Shortness of breath sometimes when walking upstairs. Cardiovascular: Regular rate, Regular rhythm, S1 auscultated, S2 auscultated, No murmur, Good pulses equal in all extremities, Normal peripheral perfusion, No edema, Blood pressure elevated at 154/64. Gastrointestinal: Soft, Non-tender, Non-distended, Normal bowel sounds, No organomegaly, Reports sharp pain in the belly, possibly due to gastroparesis from uncontrolled diabetes. Musculoskeletal: Normal range of motion, Normal strength, No tenderness, No swelling, No deformity, Normal gait, Reports joint pain in knees, ankles, and hips. Integumentary: Warm, Dry, [place], Intact. Neurologic: Alert, Oriented, Normal sensory, Normal motor function, No focal defects, Cranial Nerves II-XII are grossly intact, Normal deep tendon reflexes, Reports dizziness when laying on one side. Psychiatric: Cooperative, Appropriate mood & affect, Normal judgment. This visit meets criteria for a Level 5 encounter due to high-complexity medical decision making. The patient has multiple chronic conditions with severe exacerbation and progression, including dangerously uncontrolled type 2 diabetes (A1c 10.5) causing worsening stage 3B chronic kidney disease with prior hyperkalemia, uncontrolled hypertension, neuropathic pain, suspected diabetic gastroparesis, and untreated sleep apnea in the setting of known cardiovascular disease. Management required intensive medication adjustments, including titrating long-acting insulin, initiating prandial insulin with correction scale, and increasing tamsulosin for significant lower urinary tract symptoms. The patient demonstrated marked non-adherence to insulin therapy, glucose monitoring, and CPAP, requiring extensive counseling and risk-mitigation discussion. I reviewed prior labs (A1c, creatinine, potassium, lipids), ordered new diagnostic testing, and initiated two specialty referrals (Endocrinology and Nephrology) due to high risk of organ failure and need for subspecialty co-management. Given the patient?s unstable status, progression of end-organ disease, high risk of morbidity, and the need for medication management with elevated risk of complications, the complexity of today?s visit clearly supports a 21659 level of service. Coding Level of Care Code Est Pt Level 5 (17813) Complex EM visit Add On G2211 Diagnoses Type 2 diabetes mellitus with unspecified complications E11.8 CKD stage 3 secondary to diabetes E11.22; N18.30 Essential hypertension I10 Benign prostatic hyperplasia with urinary frequency N40.1; R35.0 Lower urinary tract symptom presence: symptoms present Lower urinary tract symptom detail: urinary frequency Generalized abdominal pain R10.84 Abdominal location: generalized Vertigo R42 ONEYDA (obstructive sleep apnea) G47.33 Assessment & Plan Assessment & Plan (1) Type 2 diabetes mellitus with unspecified complications: Comment: - The patient's diabetes is severely uncontrolled, as evidenced by a last A1c of 10.5 and non-adherence with blood glucose monitoring and insulin therapy. - Plan includes increasing long-acting insulin (glargine) to 30 units at night, initiating short-acting insulin (lispro) at 8 units before meals, and utilizing a correction scale. - The patient will continue metformin 500 mg daily. - He was instructed to monitor his blood glucose levels upon waking and with meals, and to keep a log. - A referral will be placed to Endocrinology for further management. Code(s): E11.8 - Type 2 diabetes mellitus with unspecified complications Category: Medical (2) CKD stage 3 secondary to diabetes: Comment: - Kidney function is declining, with an elevated creatinine of 1.54 and hyperkalemia (K+ 5.5), likely secondary to uncontrolled diabetes. - A referral will be placed to Nephrology. Code(s): E11.22 - Type 2 diabetes mellitus with diabetic chronic kidney disease; N18.30 - Chronic kidney disease, stage 3 unspecified Category: Medical (3) Essential hypertension: Comment: - Blood pressure is uncontrolled at 154/64 mmHg on metoprolol 25 mg. - The patient was counseled on lifestyle modifications, including sodium restriction and weight loss. Code(s): I10 - Essential (primary) hypertension Category: Medical (4) BPH (benign prostatic hyperplasia): Comment: - The patient experiences significant nocturia (4-5 times per night). - His tamsulosin dose will be increased from 0.4 mg to 0.8 mg at night. - The patient was advised to restrict fluid intake 4-5 hours before bed and to void completely before sleep. Code(s): N40.0 - Benign prostatic hyperplasia without lower urinary tract symptoms Category: Medical Qualifiers: Lower urinary tract symptom presence: symptoms present Lower urinary tract symptom detail: urinary frequency Qualified Code(s): N40.1 - Benign prostatic hyperplasia with lower urinary tract symptoms; R35.0 - Frequency of micturition (5) Abdominal pain: Comment: - Sharp abdominal pain is likely due to gastroparesis from uncontrolled diabetes. - Management will focus on improving glycemic control. Code(s): R10.9 - Unspecified abdominal pain Category: Medical Qualifiers: Abdominal location: generalized Qualified Code(s): R10.84 - Generalized abdominal pain (6) Vertigo: Comment: - The patient reports positional vertigo. - He was advised to monitor symptoms and be cautious. Code(s): R42 - Dizziness and giddiness Category: Medical (7) ONEYDA (obstructive sleep apnea): Comment: - Patient is non-adherent with CPAP therapy. - He was educated on the cardiovascular risks of untreated sleep apnea and encouraged to resume CPAP use. Code(s): G47.33 - Obstructive sleep apnea (adult) (pediatric) Category: Medical Plan: Health Maintenance: - Opthalmologic exam: Patient reports he has an appointment with an eye doctor next week. - Podiatric care: Patient has been seen by a health information administrator and has obtained diabetic shoes. - Cardiologic care: Patient is overdue for a cardiology follow-up. - Healthy lifestyle: Advised to make dietary changes including salt reduction, start losing weight, and improve adherence to medical therapies. Patient was informed and verbally consented to the use of an ambient scribe for clinic note documentation during this visit. Plan I had an extensive discussion with the patient regarding his multiple uncontrolled chronic conditions, particularly his type 2 diabetes. I explained that his A1c of 10.5 is dangerously high and is the primary furniture delivery driver of his worsening stage 3B kidney disease, which could lead to a need for dialysis if not addressed. I stressed that he must take responsibility for his health by consistently monitoring his blood sugars and adhering to his insulin regimen. We reviewed the updated insulin plan, increasing his nightly glargine to 30 units and starting lispro 8 units with meals, plus correction. I also discussed adjusting his tamsulosin for his nocturia and recommended lifestyle changes for his blood pressure, including salt reduction. I informed him that referrals would be made to both endocrinology and nephrology for specialist management, and that their offices will contact him to schedule appointments. He was instructed to go for blood work today and to follow up in 3 months. Orders: Orders Comprehensive Met. Panel Today E11.8 - Type 2 diabetes mellitus with unspecified complications Hemoglobin A1c Today E11.8 - Type 2 diabetes mellitus with unspecified complications Referrals Endocrinology Referral E11.8 - Type 2 diabetes mellitus with unspecified complications Nephrology Referral E11.22 - Type 2 diabetes mellitus with diabetic chronic kidney disease, E11.29 - Type 2 diabetes mellitus with other diabetic kidney complication, E11.8 - Type 2 diabetes mellitus with unspecified complications, E87.5 - Hyperkalemia, N18.30 - Chronic kidney disease, stage 3 unspecified, R80.9 - Proteinuria, unspecified Medications: New tamsulosin 0.8 mg (2 x 0.4 mg) PO BEDTIME 90 caps 0RF Changed From insulin glargine-yfgn 25 units subcut BEDTIME To insulin glargine-yfgn 30 units (0.3 mL) subcut BEDTIME 15 mL 5RF From insulin lispro (Humalog KwikPen (U-100) Insulin) 5 units subcut TID To insulin lispro (Humalog KwikPen (U-100) Insulin) 8 units (0.08 mL) subcut TID 15 mL 7RF Patient Instructions: - For your diabetes, increase your long-acting insulin (Glargine) to 30 units at night. - Start taking your short-acting insulin (Lispro), 8 units before each meal. - Check your blood sugar every morning when you wake up and before each meal. - Keep a written log of your blood sugar readings and the amount of insulin you take. - For your prostate issues, increase your Tamsulosin dose to 0.8 mg at night. - To help you sleep through the night, try to stop drinking fluids 4 to 5 hours before bed and make sure you urinate completely before sleeping. - For your high blood pressure, reduce the amount of salt in your diet. - We are referring you to a it technical support specialist (Endocrinology) and a kidney specialist (Nephrology). - Please go to the lab today for blood work. - You should try to use your CPAP machine for sleep apnea, as not using it can cause more heart problems. - Schedule a follow-up appointment for 3 months from now.
[2025-05-27 10:50] VITALS: BP 154/64; PULSE 59; RESP 24; TEMP 36.6; O2SAT 92; BMI 41.1
== END 2025-05-27 11:14 | disposition home or self-care (01) ==
PROVIDERS: PCP Student in an Organized Health Care Education/Training Program; Visit Provider Student in an Organized Health Care Education/Training Program
DX: E11.8 Type 2 diabetes mellitus with unspecified complications (principal); E11.22 Type 2 diabetes mellitus with diabetic chronic kidney disease; N18.30 Chronic kidney disease, stage 3 unspecified; I10 Essential (primary) hypertension; N40.1 Benign prostatic hyperplasia with lower urinary tract symptoms; R35.0 Frequency of micturition; R10.84 Generalized abdominal pain; R42 Dizziness and giddiness; G47.33 Obstructive sleep apnea (adult) (pediatric)

== ENCOUNTER → 2025-05-27 10:30 | Outpatient (BNVA) | payer OTHER, SELFPAY | PROVIDERS: PCP Family Medicine; Visit Provider Student in an Organized Health Care Education/Training Program | DX: I10 Essential (primary) hypertension (principal); I25.10 Atherosclerotic heart disease of native coronary artery without angina pectoris; E78.5 Hyperlipidemia, unspecified; I26.99 Other pulmonary embolism without acute cor pulmonale; M25.511 Pain in right shoulder; E11.22 Type 2 diabetes mellitus with diabetic chronic kidney disease; N18.30 Chronic kidney disease, stage 3 unspecified; N40.1 Benign prostatic hyperplasia with lower urinary tract symptoms; R35.0 Frequency of micturition; G47.33 Obstructive sleep apnea (adult) (pediatric); R42 Dizziness and giddiness; Z99.89 Dependence on other enabling machines and devices | CPT/HCPCS: 36415; 80053; 83036; 99212 ==

== ENCOUNTER 2025-05-27 11:18 | Outpatient (REF) | payer OTHER, SELFPAY ==
[2025-05-27 13:16] LABS: Alanine Aminotransferase 16 U/L (0-40); Albumin Level 3.9 g/dL (3.5-5.0); Alkaline Phosphatase 154 U/L (39-117); Anion Gap 12 (12-20); Aspartate Amino Transferase 51 U/L (5-37); Blood Urea Nitrogen 25 mg/dL (9-16); Calcium 9.2 mg/dL (8.4-10.2); Carbon Dioxide 30 mmol/L (22-29); Chloride 101 mmol/L (96-108); Estimated Glomerular Filt Rate 49; Potassium 5.5 mmol/L (3.3-5.1); Sodium 137 mmol/L (135-145); Total Protein 6.9 g/dL (6.5-8.0)
== END 2025-05-27 11:19 | disposition home or self-care (01) ==
LOC: HO.10HDL 11:18
PROVIDERS: Visit Provider Student in an Organized Health Care Education/Training Program
DX: Z13.89 Encounter for screening for other disorder (principal)
CPT/HCPCS: 36415; 80053; 83036

== ENCOUNTER 2025-06-16 15:15 | Outpatient (AMB) | payer OTHER, SELFPAY ==
[2025-06-16 15:19] VITALS: BP 166/68; PULSE 62; O2SAT 90; BMI 41.3
--- NOTE | 2025-06-16 15:19 | HO.NEPHOV_ITS ---
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 Required: No Accompanied by: Self / Same As Patient Allergies heparin Adverse Reaction (Severe, Verified 06/16/25 15:21) HIT Medication List - Last Reconciled 06/16/25 by Bryan Patton MD aspirin 81 mg PO DAILY atorvastatin 40 mg PO BEDTIME [diabetic shoe Diabetic shoes to be worn daily; ] doxazosin 4 mg PO BEDTIME gabapentin 300 mg PO BEDTIME insulin glargine-yfgn 30 units (0.3 mL) subcut BEDTIME insulin lispro 100 units subcut DIRECTED insulin lispro (Humalog KwikPen (U-100) Insulin) 8 units (0.08 mL) subcut TID lancets (OneTouch Delica Plus Lancet) As directed metformin 500 mg PO DAILY metoprolol succinate ER 25 mg PO DAILY pantoprazole 40 mg PO DAILY pen needle, diabetic (Aqinject Pen Needle) As directed sertraline 50 mg PO QAM tamsulosin 0.8 mg (2 x 0.4 mg) PO BEDTIME HPI Comments Details: The patient is a 70 year old male presenting for evaluation of decreased kidney function and hyperkalemia. He was sent by his primary care doctor after lab work showed these abnormalities. He has never seen a marine equipment test engineer before He is EGFR has been around 45-50 mL/minute, for at least the last 3-4 years but has remained stable. His potassium has been fluctuating, with a recent level of 5.5 mEq/L in May, which is slightly elevated. A urine test in February also showed protein in the urine. The patient's past medical history is significant for hypertension and type 2 diabetes, which he has had for at least 10 years. His blood sugar is not consistently controlled, and his last HbA1c was very high at 9.7-10.5. He also has a history of a probable stroke 3-4 years ago and cardiac surgery in 2020. The patient reports urinary symptoms including increased frequency, urgency, and nocturia. He experiences shortness of breath when climbing stairs. His medications include propranolol and doxazosin. He has a noted allergy to heparin and denies taking NSAIDs. 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 He denies alcohol consumption and reports adequate water intake. [facility] Medical History (Updated 06/19/25 @ 16:03 by Bryan Patton MD) Vertigo Abdominal pain BPH (benign prostatic hyperplasia) Diabetic polyneuropathy Hammer toes of both feet Proteinuria due to type 2 diabetes mellitus CKD stage 3 secondary to diabetes HIT (heparin-induced thrombocytopenia) Atherosclerotic cardiovascular disease HLD (hyperlipidemia) CAD (coronary artery disease) History of stroke ONEYDA (obstructive sleep apnea) Morbid obesity Type 2 diabetes mellitus with unspecified complications Essential hypertension Surgical History History of colonoscopy (~01/20/20) Status post aorto-coronary artery bypass graft History of coronary artery bypass graft x 3 (~05/21/20) S/P cardiac cath (~04/2020) History of hip replacement Family History Father Cardiovascular disease Mother Cardiovascular disease Social History Housing: Apartment Alcohol intake: former Patient Tobacco Use Status: Never used Tobacco e-Cigarette/Vaping Use: Never Used service: No Current occupational status: retired Cognitive needs: Yes (Cane) Hearing needs: No Vision needs: Yes (Rx glasses) Review of Systems Const Denies fever(s) and Denies weight loss Card Denies chest pain Resp Denies cough and Denies hemoptysis GI Denies abdominal pain, Denies diarrhea and Denies nausea Musc Denies back pain Neuro Denies focal weakness Physical Exam Vital Signs: Last Vital Signs Pulse 62 06/16/25 15:19 BP 150/60 H 06/16/25 15:34 Pulse Ox 90 L 06/16/25 15:19 Oxygen Delivery Method Room Air 06/16/25 15:19 BMI result Body Mass Index 41.3 Comfortable Neck supple no JVD. Lungs entry equal no rales. Heart S1-S2 heard no gallop or rub. Abdomen soft nontender. Neuro alert awake oriented. No asterixis. Extremities no edema. Results Reviewed Nephrology Results: Sodium, (135-145) 137 mmol/L 05/27/25 Potassium, (3.3-5.1) 5.5 mmol/L H 05/27/25 Chloride, (96-108) 101 mmol/L 05/27/25 Carbon Dioxide, (22-29) 30 mmol/L H 05/27/25 BUN, (9-16) 25 mg/dL H 05/27/25 Creatinine, (0.5-1.4) 1.43 mg/dL H 05/27/25 Calcium, (8.4-10.2) 9.2 mg/dL 05/27/25 Urine Creatinine 240.21 mg/dL 03/04/25 Assessment & Plan Assessment & Plan (1) CKD stage 3 secondary to diabetes: Code(s): E11.22 - Type 2 diabetes mellitus with diabetic chronic kidney disease; N18.30 - Chronic kidney disease, stage 3 unspecified Category: Medical (2) Hyperkalemia: Code(s): E87.5 - Hyperkalemia Category: Medical (3) Proteinuria due to type 2 diabetes mellitus: Code(s): E11.29 - Type 2 diabetes mellitus with other diabetic kidney complication; R80.9 - Proteinuria, unspecified Category: Medical Plan 1. Chronic Kidney Disease Stage III Urinary protein excretion is around 670 mg. Most likely has underlying diabetic kidney disease. Nondiabetic causes seem less likely at this time EGFR hours around 4350 mL/minute and has been stable for the last 4 or 5 years. Goal is to slow the progression of renal disease Workup initiated - A renal ultrasound will be ordered to evaluate kidneys Discussed importance of tight control of blood pressure and blood sugar to slow the progression. Due to hyperkalemia we will hold off on using any ATA inhibitors or ARB s. He will benefit from SGLT2 inhibitors. 2. Hyperkalemia - Potassium levels have been fluctuating, with a recent reading of 5.5 mEq/L. - A small dose of furosemide will be initiated to help lower blood potassium levels. - A follow-up blood test will be conducted in one week to monitor potassium levels after starting the new medication. Encouraged to stay on low-potassium diet 3. Type 2 Diabetes Mellitus - The patient has a long-standing history of diabetes for over 10 years with poor glycemic control, as evidenced by a recent HbA1c of 9.7-10.5. - Uncontrolled diabetes is the most likely cause of proteinuria and a major contributing factor to his chronic kidney disease. - The patient has a pending follow-up with endocrinology to address diabetes management. 4. Essential Hypertension - The patient has a history of hypertension, with today's reading elevated at 160/58 mmHg. - The initiation of furosemide for hyperkalemia is also expected to assist with blood pressure control. - The importance of blood pressure control in preserving kidney function was stressed. Encouraged to stay on low-sodium diet. Weight loss will be beneficial as well Orders: Orders Basic Metabolic Panel 1 Week E11.22 - Type 2 diabetes mellitus with diabetic chronic kidney disease, N18.30 - Chronic kidney disease, stage 3 unspecified Complete Blood Count no Diff 1 Week E11.22 - Type 2 diabetes mellitus with diabetic chronic kidney disease, N18.30 - Chronic kidney disease, stage 3 unspecified Total Protein Urine Random 1 Week E11.22 - Type 2 diabetes mellitus with diabetic chronic kidney disease, N18.30 - Chronic kidney disease, stage 3 unspecified Creatinine Urine 1 Week E11.22 - Type 2 diabetes mellitus with diabetic chronic kidney disease, N18.30 - Chronic kidney disease, stage 3 unspecified UA and rflx microscopic 1 Week E11.22 - Type 2 diabetes mellitus with diabetic chronic kidney disease, N18.30 - Chronic kidney disease, stage 3 unspecified US renal BI 06/16/25 E11.22 - Type 2 diabetes mellitus with diabetic chronic kidney disease, N18.30 - Chronic kidney disease, stage 3 unspecified Medications: New furosemide (Lasix) 20 mg PO DAILY 90 tabs 1RF Coding Level of Care Code New Pt Level 4 (01750) Diagnoses CKD stage 3 secondary to diabetes E11.22; N18.30 Hyperkalemia E87.5 Proteinuria due to type 2 diabetes mellitus E11.29; R80.9
[2025-06-16 15:34] VITALS: BP 150/60
== END 2025-06-16 15:39 | disposition home or self-care (01) ==
LOC: HO.HKA 15:16
PROVIDERS: PCP Physician Assistant; Visit Provider Internal Medicine Hypertension Specialist
DX: E11.22 Type 2 diabetes mellitus with diabetic chronic kidney disease (principal); N18.30 Chronic kidney disease, stage 3 unspecified; E87.5 Hyperkalemia; E11.29 Type 2 diabetes mellitus with other diabetic kidney complication; R80.9 Proteinuria, unspecified
CPT/HCPCS: 99204

== ENCOUNTER → 2025-06-16 15:15 | Outpatient (BNVA) | payer OTHER, SELFPAY | PROVIDERS: PCP Physician Assistant; Visit Provider Internal Medicine Hypertension Specialist | DX: I12.9 Hypertensive chronic kidney disease with stage 1 through stage 4 chronic kidney disease, or unspecified chronic kidney disease (principal); E11.22 Type 2 diabetes mellitus with diabetic chronic kidney disease; E11.65 Type 2 diabetes mellitus with hyperglycemia; N18.31 Chronic kidney disease, stage 3a; Z79.4 Long term (current) use of insulin; Z79.84 Long term (current) use of oral hypoglycemic drugs; E87.5 Hyperkalemia; R80.9 Proteinuria, unspecified; Z79.82 Long term (current) use of aspirin; E66.01 Morbid (severe) obesity due to excess calories; Z68.41 Body mass index [BMI] 40.0-44.9, adult | CPT/HCPCS: 99202 ==

== ENCOUNTER 2025-06-24 10:15 | Outpatient (REF) | payer OTHER, SELFPAY ==
--- OUTSIDE RECORDS SUMMARY | 2024-07-30 11:00 | XMS_ITS ---
Author Organization [facility] Address [address] [place] [address] Care Team Providers Care Financial Operations Consultant Name Role Phone Ina Steven Primary Care Provider Merrick Luong Unavailable [phone] Medications Medication SIG (Take, Route, Frequency, Duration) Notes Start Date End Date Status Jardiance 10 MG 1 tablet Orally Once a day Active Lantus for OptiClik Active Cyclobenzaprine HCl 5 MG 1 tablet as nee ded Orally Three times a day Active Diclofenac Sodium 1 % APPLY 4 GRAMS TO P AINFUL AREA ON FOOT DIRECTED FOUR TIMES A DAY; Duration: 30 Active Gabapentin 300 MG 1 capsule before bed time Orally Once a day Active metFORMIN HCl 500 MG 1 tablet with meals Orally Twice a day Active Voltaren 1 % Apply 4 grams to xavi nful area on foot as directed Externally Four times a day; Duration: 30 days 09/10/2019 Active Extra Depth Orthopedic Shoes (1 Pair) with Customized Heat Molded Multidensity Innersoles (3 Pair) as directed Dx: NIDDM/Polyneuropathy (E11.42), Hammertoe Foot Deformity (M20.41,M20.42), Preulcerative Skin Lesion(s) (L85.1 01/30/2024 Active Atorvastatin Calcium 20 MG 1 tablet Oral ly Once a day Active Baby Aspirin Active Lisinopril 40 MG 1 tablet Orally Once a day Active Encounters Encounter Location Date Provider Diagnosis [facility] [address] [place] [address] 07/30/2024 Merrick Denise Plan Of Treatment Next Appt Details Provider Name:Merrick Lincoln Howie , 08/26/2025 10:00:00 AM, [address] [place], [address], Progress Notes * ALAINARiver DUBON ADOB: 4 (70 yo M)Acc No.[id number]:07/30/2024 Progress Note Patient: River VERDUGO Provider: Estephanie Denise DPM :1955 A ge:69 Y S ex:Male Date:07/30/2024 Address:[address] [place], [place] [id number] Pcp:Ina Steven Subjective: * Chief Complaints: * * Medical History: A rthritis, Back,Hip,and Knee pain, Diabetes mellitus - Neuropathy, Heart disease, Stroke, Measles, Mumps, Chicken pox, Hypertension, Cholesterol. * Medications: T aking Extra Depth Orthopedic Shoes (1 Pair) with Customized Heat Molded Multidensity Innersoles (3 Pair) as directed Dx: NIDDM/Polyneuropathy (E11.42), Hammertoe Foot Deformity (M20.41,M20.42), Preulcerative Skin Lesion(s) (L85.1 , Taking Atorvastatin Calcium 20 MG Tablet 1 tablet Orally Once a day , Taking Baby Aspirin , Taking Cyclobenzaprine HCl 5 MG Tablet 1 tablet as needed Orally Three times a day , Taking Diclofenac Sodium 1 % Gel APPLY 4 GRAMS TO PAINFUL AREA ON FOOT DIRECTED FOUR TIMES A DAY , Taking Gabapentin 300 MG Capsule 1 capsule before bedtime Orally Once a day , Taking Jardiance 10 MG Tablet 1 tablet Orally Once a day , Taking Lantus for OptiClik , Taking Lisinopril 40 MG Tablet 1 tablet Orally Once a day , Taking metFORMIN HCl 500 MG Tablet 1 tablet with meals Orally Twice a day , Taking Voltaren 1 % Gel Apply 4 grams to painful area on foot as directed Externally Four times a day Objective: * Vitals: Assessment: Plan: * Treatment: * Images: * The named appointment provid er may or may not be the originator of this progress note, and it is not deemed complete until electronically signed by the appointment provider. Sign off status: Pending * Provider: Estephanie Denise DPM Date: 0 07/30/2024 Generated for Gabriel dinh/Madeline on: 1 08/25/2024 12:47 PM EST
--- OUTSIDE RECORDS SUMMARY | 2025-06-19 05:20 | XMS_ITS ---
Demographics Address [address] [place] [address] Mobile Email Address Preferred Language en Marital Status Unknown Episcopalian Affiliation Unknown Race White Ethnic Group Not or Lati no Author Organization [facility] Address [address] [place] [address] Care Team Providers Care Ingredient Scaler Name Role Phone MARGARITA EAGLE Primary Care Provider Jose E Funez [phone] Allergies No Known Allergies REASON FOR VISIT Patient presents today for screening colonoscopy Medications Medication SIG (Take, Route, Frequency, Duration) Notes Start Date End Date Status Aspirin 81 81 MG Tablet Delayed Release 1 tablet Orally Once a day; Duration: 30 day(s) Active Metoprolol Succinate ER 25 MG Tablet Extended Release 24 Hour Oral; Duration: 90 Days Acti ve Tamsulosin HCl 0.4 MG Capsule Oral; Duration: 45 Days Acti ve Doxazosin Mesylate 4 MG Tablet Oral; Duration: 90 Days Acti ve HumaLOG 06/19/2025 Active Atorvastatin Calcium 20 MG Tablet 1 tablet Orally Once a day A ctive metFORMIN HCl 500 MG Tablet Orally Active Lantus 100 UNIT/ML Solution as directed/18 units Subcutaneous at night Active Sertraline HCl 50 MG Tablet TAKE 1 TABLET BY MOUTH EVERY DAY IN THE MORNING DIRECTED Oral; Duration: 30 Active Gabapentin 300 MG Capsule TAKE 1 CAPSULE AT BEDTIME Oral; Duration: 30 Active Immunizations Vaccine Route Administration Date Status Comme nts Influenza Unknown 06/19/2025 Refused Social History Social History Drugs/Alcohol: Social Info Question Answer Notes Alcohol Screen Did you have a drink containing alcohol in the past year? Yes Points 1 Interpretation Negative How often did you have 6 or more drinks on one occasion in the past year? Never (0 point) How many drinks did you have on a typical day when you were drinking in the past year? 1 or 2 drinks (0 point) How often did you have a drink containing alcohol in the past year? Monthly or less (1 point) Drug/Alcohol: Social Info Question Answer Notes AUDIT-C (Standard) Did you have a drink containing alcohol in the past year? No Points 0 Interpretation Negative Section Notes: Nonsmoker; no sig alcohol Vital Signs Blood pressure systolic 001 mm Hg 06/19/20 25 Blood pressure diastolic 01 mm Hg 025 Height 68 in 06/19/2025 Weight 276.2 lbs 06/19/2025 BMI 41.99 kg/m2 06/19/2025 Encounters Encounter Location Date Provider Diagnosis [facility] [address] [place] [address] 06/19/2025 Jose E Welsh Hx of adenomatous colonic polyps Z86.010 ; Encounter for screening for malignant neoplasm of colon Z12.11 ; Long-term use of aspirin therapy Z79.82 and Preprocedural examination Z01.818 Assessments Encounter Date Diagnosis (ICD Code) Assessment Notes Treatment Notes Treatment Clinical Notes Section Notes 06/19/2025 Hx of adenomatous colonic polyps (ICD-10 - Z86.010) Overall, Rowan appears to be doing well. He is not having any new or worrisome GI symptoms. I did recommend a follow-up colonoscopy for further screening given his previous history of tubular adenomas and his last colonoscopy being over 5 years ago. We did review the rationale for this in regard to colon cancer prevention. Full consent has been attained for this, including risks of bleeding and perforation. The procedure will be done with monitored anesthesia care. He was given the below instructions regarding adjustment of his medications for the procedure. Rowan was comfortable with this plan. Thank you again for allowing me to participate in Rowan's care. I shall continue to keep you advised of his progress. 06/19/2025 Encounter for screening for malignant neoplasm of colon (ICD-10 - Z12.11) Overall, Rowan appears to be doing well. He is not having any new or worrisome GI symptoms. I did recommend a follow-up colonoscopy for further screening given his previous history of tubular adenomas and his last colonoscopy being over 5 years ago. We did review the rationale for this in regard to colon cancer prevention. Full consent has been attained for this, including risks of bleeding and perforation. The procedure will be done with monitored anesthesia care. He was given the below instructions regarding adjustment of his medications for the procedure. Rowan was comfortable with this plan. Thank you again for allowing me to participate in Rowan's care. I shall continue to keep you advised of his progress. 06/19/2025 Long-term use of aspirin therapy (ICD-10 - Z79.82) Overall, Rowan appears to be doing well. He is not having any new or worrisome GI symptoms. I did recommend a follow-up colonoscopy for further screening given his previous history of tubular adenomas and his last colonoscopy being over 5 years ago. We did review the rationale for this in regard to colon cancer prevention. Full consent has been attained for this, including risks of bleeding and perforation. The procedure will be done with monitored anesthesia care. He was given the below instructions regarding adjustment of his medications for the procedure. Rowan was comfortable with this plan. Thank you again for allowing me to participate in Rowan's care. I shall continue to keep you advised of his progress. 06/19/2025 Preprocedural examination (ICD-10 - Z01.818) Overall, Rowan appears to be doing well. He is not having any new or worrisome GI symptoms. I did recommend a follow-up colonoscopy for further screening given his previous history of tubular adenomas and his last colonoscopy being over 5 years ago. We did review the rationale for this in regard to colon cancer prevention. Full consent has been attained for this, including risks of bleeding and perforation. The procedure will be done with monitored anesthesia care. He was given the below instructions regarding adjustment of his medications for the procedure. Rowan was comfortable with this plan. Thank you again for allowing me to participate in Rowan's care. I shall continue to keep you advised of his progress. Plan Of Treatment Future Test Test Name Order Date COLONOSCOPY 06/19/2025 Next Appt Details Provider Name:Jose E Welsh , 08/20/2025 09:20:00 AM, [address] [place] [address] , [place], [place], [phone], History and Physical Notes * HPI (History of Present Illness) Category Sub-Category Detail Notes Category Not es incontinence I saw Rowan in the office today for evaluation of his personal history of tubular adenomas of the colon and need for colorectal cancer screening. I last saw Rowan in 2019, at which time he underwent a follow-up screening colonoscopy with removal of a small tubular adenoma. He did have an initial screening colonoscopy in 2014 with removal of several small tubular adenomas. He presently feels well. He enjoys a good appetite and denies any significant heartburn or dysphagia. His bowel movements have been regular and without any signs of bleeding. He denies any abdominal pain, jaundice, nor unintentional weight loss. He denies any known family history of colorectal cancer. Laboratories in May revealed normal chemistries, BUN 25, creatinine 1.4, and normal LFTs except for minimal elevations of the AST and alk phos. Progress Notes * SANDY FOLEYOB:1955 (70 yo M)Acc No.[id number]:06/19/2025 Progress Notes Patient: ROWAN VERDUGO Provider: Venus Welsh MD :1955 A ge:70 Y S ex:Male Date:06/19/2025 Address:[address] [place], [place] [id number] Pcp:MARGARITA EAGLE Subjective: * Chief Complaints: * Patient presents today for screening colonoscopy * HPI: i ncontinence: I saw Rowan in the office today for evaluation of his personal history of tubular adenomas of the colon and need for colorectal cancer screening. I last saw Rowan in 2019, at which time he underwent a follow-up screening colonoscopy with removal of a small tubular adenoma. He did have an initial screening colonoscopy in 2014 with removal of several small tubular adenomas. He presently feels well. He enjoys a good appetite and denies any significant heartburn or dysphagia. His bowel movements have been regular and without any signs of bleeding. He denies any abdominal pain, jaundice, nor unintentional weight loss. He denies any known family history of colorectal cancer. Laboratories in May revealed normal chemistries, BUN 25, creatinine 1.4, and normal LFTs except for minimal elevations of the AST and alk phos. * Medical History: Denies NV,CVA,Lung disease,renal disease IDDM HTN Hyperlipidemia Screening colonoscopy 09/2014 with 3 small tubular adenomas removed Neuropathy Depression Vertigo Sleep apnea, but not using CPAP CAD with CABG as below- -sees Dr. Waite Medical History Verified * Surgical History: Left hip replacement 2007 Right hip replacement 09/2013 3V CABG Surgical History verified. * Hospitalization/Major Diagno stic Procedure: No Hospitalization Documented. Hospitalization Verified. * Family History: F ather: , diagnosed with HTN (hypertension), Heart disease, Diabetes. M other: , diagnosed with HTN (hypertension), Heart disease, Diabetes. F amily History Verified..? No family hx of colon or liver cancer. * Social History: T obacco Use: T obacco Use/Smoking A re you a: nonsmoker. D rugs/Alcohol: A lcohol Screen D id you have a drink containing alcohol in the past year? Y es, H ow often did you have 6 or more drinks on one occasion in the past year? N ever (0 point), H ow many drinks did you have on a typical day when you were drinking in the past year? 1 or 2 drinks (0 point), H ow often did you have a drink containing alcohol in the past year? M onthly or less (1 point), P oints 1 , I nterpretation N egative. D rug/Alcohol: A CELIA-C (Standard) D id you have a drink containing alcohol in the past year? N o,?Points 0 , I nterpretation N egative. Social History Verified. N onsmoker; no sig alcohol. * Medications: T akingAtorvastatin Calcium 20 MG Tablet 1 tablet Orally Once a day metFORMIN HCl 500 MG Tablet Orally Lantus 100 UNIT/ML Solution as directed/18 units Subcutaneous at night Sertraline HCl 50 MG Tablet TAKE 1 TABLET BY MOUTH EVERY DAY IN THE MORNING DIRECTED Oral Gabapentin 300 MG Capsule TAKE 1 CAPSULE AT BEDTIME Oral Aspirin 81 81 MG Tablet Delayed Release 1 tablet Orally Once a day Metoprolol Succinate ER 25 MG Tablet Extended Release 24 Hour Oral Tamsulosin HCl 0.4 MG Capsule Oral Doxazosin Mesylate 4 MG Tablet Oral HumaLOG Medication List reviewed and reconciled with the patientTaking Atorvastatin Calcium 20 MG Tablet 1 tablet Orally Once a day Taking metFORMIN HCl 500 MG Tablet Orally Taking Lantus 100 UNIT/ML Solution as directed/18 units Subcutaneous at night Taking Sertraline HCl 50 MG Tablet TAKE 1 TABLET BY MOUTH EVERY DAY IN THE MORNING DIRECTED Oral Taking Gabapentin 300 MG Capsule TAKE 1 CAPSULE AT BEDTIME Oral Taking Aspirin 81 81 MG Tablet Delayed Release 1 tablet Orally Once a day Taking Metoprolol Succinate ER 25 MG Tablet Extended Release 24 Hour Oral Taking Tamsulosin HCl 0.4 MG Capsule Oral Taking Doxazosin Mesylate 4 MG Tablet Oral Taking HumaLOG Medication List reviewed and reconciled with the patient * Allergies: N .K.BetoyesAllergies Verified. Objective: * Vitals: W t:276.2lbs, Ht: 68 in, BMI:41.99Index, BP:001/01mm Hg, Ht-cm: 172.72 cm, Wt-k.28 kg. Assessment: * Assessment: 1. H x of adenomatous colonic polyps - Z86.010 (Primary) 2 . E ncounter for screening for malignant neoplasm of colon - Z12.11 3 . L taylor-term use of aspirin therapy - Z79.82 4 . P reprocedural examination - Z01.818 Overall, Rowan appears to be d oing well. He is not having any new or worrisome GI symptoms. I did recommend a follow-up colonoscopy for further screening given his previous history of tubular adenomas and his last colonoscopy being over 5 years ago. We did review the rationale for this in regard to colon cancer prevention. Full consent has been attained for this, including risks of bleeding and perforation. The procedure will be done with monitored anesthesia care. He was given the below instructions regarding adjustment of his medications for the procedure. Rowan was comfortable with this plan. Thank you again for allowing me to participate in Rowan's care. I shall continue to keep you advised of his progress. Plan: * Treatment: 2.?Encounter for screening for malignant neoplasm of colon?Procedure: COLONOSCOPY (Ordered for 06/19/2025)* With MAC. Do not take aspiri n on the morning of the colonoscopy. Take only 1/2 the Insulin the night before the colonosocpy. Do not take the Metformin the night before or on the morning of the colonoscopysched for 08/20/25 at 9:20 am, miralax prep * Immunizations: Influenza (Not administered - Refused: Patient decision) * Preventive Medicine: Counseling: C are goal follow-up plan: A aba Normal BMI Follow-up D ietary management education, guidance, and counseling, B NV management provided Y es. Screenings: F all Risk Screening F all Risk Assessment: N o falls in the past year, S creening: N o falls in the past year, P bhavesh of Care: N ot documented, no reason specified. * The named appointment provid er may or may not be the originator of this progress note, and it is not deemed complete until electronically signed by the appointment provider. Sign off status: Pending * Provider: Venus Welsh MD Date: 08/20/2024 Generated for Gabriel dinh/Gael/Saúlitting on: 08/25/2024 12:46 PM EST
--- OUTSIDE RECORDS SUMMARY | 2025-06-24 12:47 | XMS_ITS | Patient Health Record ---
Author Organization [facility] Address [address] [place] [address] Care Team Providers Care Smt Technician Name Role Phone MARGARITA EAGLE Primary Care Provider Jose E Funez [phone] Allergies No Known Allergies Reason For Referral No Information Medications Medication SIG (Take, Route, Frequency, Duration) Notes Start Date End Date Status Atorvastatin Calcium 20 MG Tablet 1 tablet [...] CAPSULE AT BEDTIME Oral; Duration: 30 Active Aspirin 81 81 MG Tablet Delayed Release 1 tablet Orally Once a day; Duration: 30 day(s) Active Metoprolol Succinate ER 25 MG Tablet Extended Release 24 Hour Oral; Duration: 90 Days Acti ve Tamsulosin HCl 0.4 MG Capsule Oral; Duration: 45 Days Acti ve Doxazosin Mesylate 4 MG Tablet Oral; Duration: 90 Days Acti ve HumaLOG 06/19/2025 Active Immunizations Vaccine Route Administration Date Status Comme nts Influenza Unknown 11/15/2019 Refused Influenza Unknown 06/19/2025 Refused Social History Social History Drug/Alcohol: Social Info Question Answer Notes AUDIT-C (Standard) Did you have a drink containing alcohol in the past year? 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 Section Notes: Nonsmoker; no sig alcohol Nonsmoker; no sig alcohol Nonsmoker; no sig alcohol Problems Problem Type SNOMED Code ICD Code Onset Dates Problem Status W/U Status Risk Notes Problem Screening for malignant neoplasm of colon (629669567) Encounter for screening for malignant neoplasm of colon (Z12.11) Active confirmed Problem Preprocedural examination (491054792458314) Preprocedural examination (Z01.818) Active confirmed Problem Long-term current use of antiplatelet drug (912107628941604) Long-term use of aspirin therapy (Z79.82) Active confirmed Problem History of adenomatous polyp of colon (485057132) Hx of adenomatous colonic polyps (Z86.010) Active confirmed Vital Signs Blood pressure diastolic 01 mm Hg 06/19/2025 Height 68 in 06/19/2025 Blood pressure systolic 001 mm Hg 06/19/2025 Weight 276.2 lbs 06/19/2025 BMI 41.99 kg/m2 06/19/2025 Encounters Encounter Location Date Provider Diagnosis [facility] [address] [place] [address] 06/19/2025 Jose E Welsh Hx of adenomatous colonic polyps Z86.010 ; Encounter for screening for malignant neoplasm of colon Z12.11 ; Long-term use of aspirin therapy Z79.82 and Preprocedural examination Z01.818 [facility] [address] [place] [address] 06/19/2025 Jose E Welsh Assessments Encounter Date Diagnosis (ICD Code) Assessment Notes Treatment Notes Treatment Clinical Notes Section Notes 06/19/2025 Encounter for screening for malignant neoplasm [...] keep you advised of his progress. 06/19/2025 Hx of adenomatous colonic polyps (ICD-10 [...] Name Order Date COLONOSCOPY 07/16/2014 COLONOSCOPY 11/15/2019 COLONOSCOPY 06/19/2025 Next Appt Details Provider Name:Jose E Welsh , 08/20/2025 09:20:00 AM, [address] [place] [address] , [place], [place], [phone], Insurance Providers Payer Name Payer Address Payer Phone Subscriber Number Group Number Insured Name Patient Relationship to Insured Coverage Start Date Coverage End Date [facility] [address] Attn Claims AGUSTIN Bosch [id number] ROWAN FOLEY Self - patient is the insured Medical (General) History Medical History History ICD Code Denies ID,CVA,Lung disease,renal disease IDDM HTN Hyperlipidemia Screening colonoscopy 09/2014 with 3 smal l tubular adenomas removed Neuropathy Depression Vertigo Sleep apnea, but not using CPAP CAD with CABG as below- -sees Dr. Jennifer fernández Surgical History Surgery Date(Month/Year) Left hip replacement 2007 Right hip replacement 09/2013 3V CABG
--- OUTSIDE RECORDS SUMMARY | 2025-06-24 12:47 | XMS_ITS | Patient Health Record ---
[facility] Address [address] [place] [address] Care Team Providers Care Hospital Nurse Name Role Phone Ina Steven Primary Care Provider Merrick Luong Unavailable [phone] Allergies No Known Allergies Results Component Value Reference Range Notes HEMOGLOBIN A1C (GLYCOHEMOGLO BIN) Reviewed date:10/22/2024 01:50:26 PM Interpretation: Performing Lab: Notes/Report: HEMOGLOBIN A1C % (HH) 7.2 HEMOGLOBIN A1C (GLYCOHEMOGLO BIN) Reviewed date:04/29/2025 10:01:31 AM Interpretation: Performing Lab: Notes/Report: HEMOGLOBIN A1C % (HH) 7.2 Reason For Referral No Information Medications Medication SIG (Take, Route, Frequency, Duration) Notes Start Date End Date Status HumaLOG Active Voltaren 1 % Apply 4 grams to painful area on foot as directed Externally Four times a day; Duration: 30 days 09/10/2019 Not-Taking Atorvastatin Calcium 20 MG 1 tablet Orally Once a day Active Jardiance 10 MG 1 tablet Orally Once a day Active Lantus for OptiClik Active Lisinopril 40 MG 1 tablet Orally Once a day Active Metoprolol Succinate 25 MG 1 capsule Orally Once a day Active metFORMIN HCl 500 MG 1 tablet with meals Orally Twice a day Active Extra Depth Orthopedic Shoes (1 Pair) with Customized Heat Molded Multidensity Innersoles (3 Pair) as directed Dx: NIDDM/Polyneuropathy (E11.42), Hammertoe Foot Deformity (M20.41,M20.42), Preulcerative Skin Lesion(s) (L85.1 Active Baby Aspirin Active Cyclobenzaprine HCl 5 MG 1 tablet as nee ded Orally Three times a day Active Diclofenac Sodium 1 % APPLY 4 GRAMS TO PAINFUL AREA ON FOOT DIRECTED FOUR TIMES A DAY; Duration: 30 Active Gabapentin 300 MG 1 capsule before bedtime Orally Once a day Active Immunizations Vaccine Route Administration Date Status Comme nts Influenza Unknown 01/02/2018 Refused Influenza Unknown 04/10/2020 Refused Influenza Unknown 01/24/2025 Refused COVID-19 Moderna Vaccine Unknown 09/29/2020 Administere d 1st Dose 08/24/20 Social History Tobacco Use: Social History Observation [...] Problem Status W/U Status Risk Notes Problem Information temporarily unavailable Other hammer toe(s) (acquired), right foot (M20.41) Active confirmed Problem Information temporarily unavailable Other hammer toe(s) (acquired), left foot (M20.42) Active confirmed Problem Information temporarily unavailable Type 2 diabetes mellitus with diabetic polyneuropathy (E11.42) Active confirmed Vital Signs Blood pressure diastolic 65 mm Hg 04/29/2025 Height 7xx17pt in 04/29/2025 Blood pressure systolic 128 mm Hg 04/29/2025 Weight 245 lbs 04/29/2025 BMI 35.15 kg/m2 04/29/2025 Procedures Procedure Date Ordered Date Performed Result Body Sit e 80902-MPUZHKB NAIL, 6 OR MORE 10/22/2024 N/A 30583-QLZJ SKIN LESIONS, 2 TO 4 10/22/2024 N/A 83646-PKJCUAL NAIL, 6 OR MORE 01/24/2025 N/A 32470-YIWN SKIN LESIONS, 2 TO 4 01/24/2025 N/A 55361-JMFNJQE NAIL, 6 OR MORE 04/29/2025 N/A 94016-PDZA SKIN LESIONS, 2 TO 4 04/29/2025 N/A Encounters Encounter Location Date Provider Diagnosis [facility] [place] [address] 10/22/2024 Merrick Denise Type 2 diabetes mellitus with diabetic polyneuropathy E11.42 and Tinea unguium B35.[address] [address] 01/24/2025 Merrick Denise Type 2 diabetes mellitus with diabetic polyneuropathy E11.42 and Tinea unguium B35.[address] [address] 04/29/2025 Merrickkenzie Denise Type 2 diabetes mellitus with diabetic polyneuropathy E11.42 ; Tinea unguium B35.1 ; Other hammer toe(s) (acquired), right foot M20.41 and Other hammer toe(s) (acquired), left foot M20.[address] [address] 07/30/2024 Merrick Denise Assessments Encounter Date Diagnosis (ICD Code) Assessment Notes Treatment Notes Treatment Clinical Notes Section Notes 10/22/2024 Type 2 diabetes mellitus with diabetic polyneuropathy (ICD-10 - E11.42) 10/22/2024 Tinea unguium (ICD-10 - B35.1) 01/24/2025 Type 2 diabetes mellitus with diabetic polyneuropathy (ICD-10 - E11.42) 01/24/2025 Tinea unguium (ICD-10 - B35.1) 04/29/2025 Type 2 diabetes mellitus with diabetic polyneuropathy (ICD-10 - E11.42) 04/29/2025 Tinea unguium (ICD-10 - B35.1) 04/29/2025 Other hammer toe(s) (acquired), right foot (ICD-10 - M20.41) Patient Educated with: DIABETIC FOOT CARE INSTRUCTIONS. pdf (DIABETIC FOOT CARE INSTRUCTIONS. pdf) 04/29/2025 Other hammer toe(s) (acquired), left foot (ICD-10 - M20.42) Plan Of Treatment Pending Test Test Name Order Date 55324-KKDVYFJ NAIL, 6 OR MORE 10/30/2020 75164-EZZJRNM NAIL, 6 OR MORE 01/29/2021 53185-PCWOUKM NAIL, 6 OR MORE 06/22/2021 91086-UQXKIYT NAIL, 6 OR MORE 12/30/2022 53559-HSRRJHP NAIL, 6 OR MORE 01/30/2024 45659-MXYYIIA NAIL, 6 OR MORE 04/30/2024 86236-GHRFOTP NAIL, 6 OR MORE 10/22/2024 66748-CSXGKDA NAIL, 6 OR MORE 01/24/2025 28604-AEGSKBS NAIL, 6 OR MORE 04/29/2025 57844-KDLW SKIN LESIONS, 2 TO 4 04/29/20 83090-HKAZ SKIN LESIONS, 2 TO 4 01/25/20 03551-NWVY SKIN LESIONS, 2 TO 4 06/22/20 28415-JKSU SKIN LESIONS, 2 TO 4 10/23/19 15281-HYIJ SKIN LESIONS, 2 TO 4 04/30/20 24 40511-TDIC SKIN LESIONS, 2 TO 4 01/30/20 24 40627-ITWV SKIN LESIONS, 2 TO 4 12/31/19 76822-PWGT SKIN LESIONS, 2 TO 4 01/30/20 54783-CRPX SKIN LESIONS, 2 TO 4 10/31/19 21 73827,K5636-VKX TENDON SHEATH/LIGAMENT 0 01/02/2018 75853,R6140-VYG TENDON SHEATH/LIGAMENT 0 02/19/2019 58960,X9089-JIK TENDON SHEATH/LIGAMENT 1 28510,J1303-CGR TENDON SHEATH/LIGAMENT 0 01/29/2021 28878,E8574-LBA TENDON SHEATH/LIGAMENT 1 08/23/2020 Next Appt Details Provider Name:Merrick Denise , 08/26/2025 10:00:00 AM, [address] [place], [address], Insurance Providers Payer Name Payer Address Payer Phone Subscriber Number Group Number Insured Name Patient Relationship to Insured Coverage Start Date Coverage End Date [facility] [employer] Claims [address] AGUSTIN Bosch [id number] [place] Self - patient is the insured Medical (General) History Medical History History ICD Code Arthritis Back,Hip,and Knee pain Diabetes mellitus - Neuropathy Heart disease Stroke Measles Mumps Chicken pox Hypertension Cholesterol Surgical History Surgery Date(Month/Year) hernia hip replacement x 2 triple bypass 05/2020 cataract surgery Hospital[place] History Reason Date(Month/Year[place] [facility] [place]
[2025-06-24 13:27] LABS: Appearance Urine Cloudy; Glucose Urine UA Negative (Negative); PH 7.0 (5.0-9.0); Specific Gravity - Urine 1.015 (1.005-1.025); UMIC TRIGGER UA YES
[2025-06-24 14:03] LABS: Total Protein Urine Random 154 mg/dL (<12)
[2025-06-24 14:28] LABS: Hematocrit 44.8 % (42.0-52.0); Hemoglobin 14.1 g/dl (14.0-18.0); Mean Corpuscular HGB Conc 31.5 g/dl (31.0-36.0); Mean Corpuscular Hemoglobin 29.8 pg (27.0-33.0); Mean Corpuscular Volume 94.7 fL (80.0-98.0); NRBC Abs Auto 0.000 X10*3/uL (0.0-0.012); NRBC Pct Auto 0.0 /100WBC (0.0-0.2); Platelet Count 207 X10*3/uL (160-400); Red Blood Count 4.73 X10*6/uL (4.60-5.80); White Blood Count 6.5 X10*3/uL (4.8-10.8)
[2025-06-24 15:07] LABS: Anion Gap 9 (12-20); Blood Urea Nitrogen 25 mg/dL (9-16); Calcium 8.7 mg/dL (8.4-10.2); Carbon Dioxide 33 mmol/L (22-29); Chloride 104 mmol/L (96-108); Estimated Glomerular Filt Rate 45; Potassium 4.8 mmol/L (3.3-5.1); Sodium 141 mmol/L (135-145)
== END 2025-06-24 10:16 | disposition home or self-care (01) ==
LOC: HO.10HDL 10:15
PROVIDERS: Visit Provider Internal Medicine Hypertension Specialist
DX: E11.22 Type 2 diabetes mellitus with diabetic chronic kidney disease (principal); N18.30 Chronic kidney disease, stage 3 unspecified
CPT/HCPCS: 36415; 80048; 81001; 82570; 84156; 85027